=== PATIENT | male | born 1965 | race Caucasian/White ===

== ENCOUNTER → 2020-05-08 | Outpatient (CLI) | payer BC ==
--- NOTE | 2020-05-08 12:30 | CONS ---
CONSULTATION DATE OF SERVICE: 05/08/2020 A 55-year-old gentleman who has [facility] for obstructive sleep apnea-hypopnea syndrome. HISTORY OF PRESENT ILLNESS/SLEEP-WAKE EVALUATION: According to the patient, he was diagnosed with obstructive sleep apnea about 16 years ago. He was treated with CPAP but stopped treatment more than one year ago. Presently his sleep schedule from 11 p.m. to 6:15 am basically 7 days a week. He denied any problem with falling asleep, although has TV set in bedroom. He sleeps on the back and side position, preferred to sleep on the back. He has loud snoring, episodes of stopped breathing during the sleep, awakenings from sleep with restless leg, gasping for air. Sleep talking, panic attack, grinding teeth. A total amount of awakenings about 6 and about 4 episodes of nocturia at night. According to patient sometimes he started to see dreams right after falling asleep. In the morning, patient wakes up tired, falling asleep during the day, worried about his sleep, has episodes of depression. Tignall Sleepiness Scale significantly increased to 14. He takes several naps during the day for 10-20 minutes, feels refreshed after naps, does not see any dreams during the naps. PAST MEDICAL HISTORY: Positive for coronary artery disease, status post CO and several stent insertions, hypertension, bronchitis, hyperlipidemia. PAST SURGICAL HISTORY: Neck and spine surgery, hernia repair, eye surgery. MEDICATIONS: Atorvastatin, baby aspirin, fenofibrate, lisinopril, hydrochlorothiazide, metoprolol. SOCIAL HISTORY: Positive for smoking for about 15 pack years, quit in 1996. Alcohol consumption occasional. REVIEW OF SYSTEMS: Multiple awakenings from sleep. Sleepiness during the day. Snoring, nocturia. During physical exam, extremely obese 55-year-old gentleman without distress. BP 154/98, HR 88, RR 20, height 5, 11-1/2, weight 428, body mass index 57.2, temperature 97.9, oxygen saturation at room air 92%. OROPHARYNX: Low position of soft palate, wide neck 21 inches in circumference. ABDOMEN: Obese. EXTREMITIES: 1+ bilateral ankle edema. IMPRESSION: 1. Obstructive sleep apnea-hypopnea syndrome, possibly an extremely severe range, not on treatment for more than 1 year. 2. Morbid obesity, body mass index 57.2. 3. History of restless leg symptoms. 4. Coronary artery disease, status post CO and stent insertions. 5. Hypertension. 6. History of bronchitis. 7. Status post neck surgery. 8. Hyperlipidemia. 9. Status post eye surgery. PLAN: 1. Polysomnography for evaluation of patient's breathing during sleep. 2. CPAP/BiPAP titration if sleep study confirms obstructive sleep apnea-hypopnea syndrome. 3. Preferable position during sleep on the side. 4. No driving if patient feels any sleepiness. 5. I will see patient for follow up visit to explain results of testing and following plan. Thank you very much for referring this patient for consultation. Sincerely, Saurabh Lawson MD, PhD, FAASM Diplomat of [employer] [employer] [facility] [place] MMSANTOSH / FRANKLIN: [id number] /
== END | disposition home or self-care (01) ==
LOC: SLEEP 10:47
PROVIDERS: ATTEND Internal Medicine
DX: G47.33 Obstructive sleep apnea (adult) (pediatric) (principal); Z99.89 Dependence on other enabling machines and devices; E66.01 Morbid (severe) obesity due to excess calories; Z68.43 Body mass index [BMI] 50.0-59.9, adult; I10 Essential (primary) hypertension; I25.10 Atherosclerotic heart disease of native coronary artery without angina pectoris; I25.2 Old myocardial infarction; E78.5 Hyperlipidemia, unspecified; Z98.890 Other specified postprocedural states; Z87.09 Personal history of other diseases of the respiratory system
CPT/HCPCS: 99211

== ENCOUNTER → 2020-07-10 | Outpatient (CLI) | payer BC ==
[2020-07-10 09:05] VITALS: BP 165/86; PULSE 109; RESP 14; TEMP 98.2
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
== END | disposition home or self-care (01) ==
LOC: PNWHC3 08:36
PROVIDERS: ATTEND Anesthesiology
DX: M47.816 Spondylosis without myelopathy or radiculopathy, lumbar region (principal); M51.36 Other intervertebral disc degeneration, lumbar region; M48.061 Spinal stenosis, lumbar region without neurogenic claudication; M19.90 Unspecified osteoarthritis, unspecified site; G47.33 Obstructive sleep apnea (adult) (pediatric); I25.10 Atherosclerotic heart disease of native coronary artery without angina pectoris; I25.2 Old myocardial infarction; I10 Essential (primary) hypertension; E78.5 Hyperlipidemia, unspecified; E66.01 Morbid (severe) obesity due to excess calories; Z87.891 Personal history of nicotine dependence; Z79.82 Long term (current) use of aspirin; Z79.899 Other long term (current) drug therapy; Z79.1 Long term (current) use of non-steroidal anti-inflammatories (NSAID); Z79.3 Long term (current) use of hormonal contraceptives; Z79.01 Long term (current) use of anticoagulants; Z99.89 Dependence on other enabling machines and devices
CPT/HCPCS: 99211

== ENCOUNTER → 2020-07-10 | Outpatient (CLI) | payer BC ==
[2020-07-10 16:07] VITALS: BP 106/72; PULSE 96; RESP 18; TEMP 98.1; BMI 59.5
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
== END | disposition home or self-care (01) ==
LOC: BARWHC3 15:01
PROVIDERS: ATTEND Surgery Plastic and Reconstructive Surgery
DX: E66.01 Morbid (severe) obesity due to excess calories (principal); G47.33 Obstructive sleep apnea (adult) (pediatric); F32.9 Major depressive disorder, single episode, unspecified; E78.5 Hyperlipidemia, unspecified; M19.90 Unspecified osteoarthritis, unspecified site; I25.10 Atherosclerotic heart disease of native coronary artery without angina pectoris; F41.9 Anxiety disorder, unspecified; J44.9 Chronic obstructive pulmonary disease, unspecified; I25.5 Ischemic cardiomyopathy; I21.9 Acute myocardial infarction, unspecified; D72.820 Lymphocytosis (symptomatic); Z68.44 Body mass index [BMI] 60.0-69.9, adult; Z79.82 Long term (current) use of aspirin; Z79.899 Other long term (current) drug therapy; Z79.891 Long term (current) use of opiate analgesic
CPT/HCPCS: 99211

== ENCOUNTER 2020-07-25 11:33 | Day surgery (SDC) | payer BC ==
[2020-07-23 10:14] VITALS: BMI 60.0
[~2020-07-25 11:33] MED LIST: LACTATED RINGERS 1,000 ML IV SCH
[2020-07-25 12:03] VITALS: TEMP 97
[2020-07-25] MEDS ORDERED: LIDOCAINE 1% (10MG/ML) FOR IV START INTRADERMA ONE (12:03)
[2020-07-25] MEDS ORDERED: methylPREDNISolone ACETATE 40 MG/ML 1 ML VIAL ONE (12:44)
[2020-07-25] MEDS ORDERED: IOPAMIDOL M200 10 ML VIAL ONE (12:44)
[2020-07-25] MEDS ORDERED: fentaNYL (PF) 50 MCG/ML 2 ML AMP ONE (12:44)
[2020-07-25] MEDS ORDERED: MIDAZOLAM 2 MG/2 ML VIAL ONE (12:44)
--- NOTE | 2020-07-25 13:00 | P.PCN ---
Date of Procedure: 07/25/20 Procedure(s) Performed: PREOPERATIVE DIAGNOSIS: 1- Lumbar Degenerative Disc Diseases 2-Lumbar spondylosis with Facet arthropathy without myelopathy. 3-lumbar spinal stenosis. POSTOPERATIVE DIAGNOSIS: 1-Lumber Degenerative Disc Diseases 2-Lumbar spondylosis with Facet arthropathy without myelopathy. 3-lumbar spinal stenosis PROCEDURE 1. Lumbar epidural steroid injection under fluoroscopic guidance at the L4-5 level. (Fluoroscopy imaging was available in radiology department) 2. Lumbar epidurogram. ANESTHESIA: Local with 1% lidocaine 3 ml and , moderate sedation with intravenous Versed 2 mg ,and fentanyle 100 Mcg EBL: Minimal PROCEDURE INDICATION: The patient with low back pain and radiculitis symptoms unresponsive to conservative treatment. Fluoroscopy was used to optimize visualization of the needle placement and to maximize safety. PROCEDURE DESCRIPTION / TECHNIQUE: The patient was seen and identified in the preoperative area. Risks, benefits, complications including but not limited to infections ,bleeding ,allergic reaction to the medications ,nerve damage and not complete pain releife , and alternatives were discussed with the patient. The patient agreed to proceed with the procedure and signed the consent. IV was started, and vital signs were stable. Patient was taken to the OR and time out was completed. The patient was placed in the prone position on procedure table and a pillow was placed under the abdomen to reduce lumbar lordosis. The lumbosacral area was prepped and draped in the usual sterile fashion.ere closely monitored during the procedure. Conscious sedation was used during the procedure to decrease patients anxiety. Vital signs was monitered during the entire procedure. Using anterior-posterior fluoroscopy, the L4-5 interlaminar space was identified and the skin over this site was marked and then infiltrated with 1% lidocaine subcutaneously. Subsequently, a 18-gauge 6 inches Tuohy epidural needle was inserted and advanced toward the epidural space using the ``Loss of resistance technique and guided by AP and lateral fluoroscopy. The correct needle position in the epidural space was verified with the injection of 2 mL of the water soluble contrast dye Isovue 200 contrast and observing an excellent epidurogram with the epidural spread of the dye, after negative aspiration for blood and CSF and in the absence of paresthesias. Again after negative aspiration, a 6 ml mixture containing 80 mg of Depo-medrol , and 2 ml of preservative free Normal Saline, and 2 ml of preservative free lidocaine 1% solution was injected and a washout of epidurogram was seen. Needle was withdrawn intact, skin was cleansed, and bandages were applied. COMPLICATIONS: None DISPOSITION / PLANS: The patient was placed in a supine position and transferred to the recovery area in a stable condition for observation. There was no evidence of lower extremity motor or sensory deficit after the procedure. Patient was discharged from the recovery room after meeting discharge criteria. Home discharge instructions were given to the patient by the staff. The patient was reexamined prior to discharge. The patient will schedule a follow up in the clinic in 2-4 weeks.
[2020-07-25] MEDS ORDERED: IV FLUID CONTINUATION 650 ML IV ONE (13:15)
--- NOTE | 2020-07-25 13:18 | FL ---
Fluoroscopy INDICATION: Pain FINDINGS: Fluoroscopy time: 3 seconds. Images obtained: 1. IMPRESSIONS: 1. Documentation of fluoroscopy.
[2020-07-25 13:22] VITALS: BP 144/82; RESP 20
[2020-07-25 13:28] VITALS: PULSE 88
== END 2020-07-25 14:02 | disposition home or self-care (01) ==
LOC: ORPAIN 11:33
PROVIDERS: ATTEND Specialist
DX: M47.26 Other spondylosis with radiculopathy, lumbar region (principal); M51.16 Intervertebral disc disorders with radiculopathy, lumbar region; M48.061 Spinal stenosis, lumbar region without neurogenic claudication
CPT/HCPCS: 62323; J2250; J1030; J3010; Q9966

== ENCOUNTER 2020-08-13 13:18 | Day surgery (SDC) | payer BC ==
[2020-08-09 10:27] VITALS: BMI 58.7
[2020-08-13 13:33] VITALS: RESP 18; TEMP 98
[2020-08-13] MEDS ORDERED: LACTATED RINGERS 1,000 ML IV ONE (13:33)
[2020-08-13] MEDS ORDERED: LIDOCAINE 1% (10MG/ML) FOR IV START INTRADERMA ONE (13:41)
[2020-08-13] MEDS ORDERED: MIDAZOLAM 2 MG/2 ML VIAL ONE (13:45)
[2020-08-13] MEDS ORDERED: IOPAMIDOL M200 10 ML VIAL ONE (13:45)
[2020-08-13] MEDS ORDERED: methylPREDNISolone ACETATE 40 MG/ML 1 ML VIAL ONE (13:45)
[2020-08-13] MEDS ORDERED: fentaNYL (PF) 50 MCG/ML 2 ML AMP ONE (13:45)
--- NOTE | 2020-08-13 13:58 | P.PCN ---
Date of Procedure: 08/13/20 Procedure(s) Performed: PREOPERATIVE DIAGNOSIS: 1- Lumbar Degenerative Disc Diseases 2-Lumbar spondylosis with Facet arthropathy without myelopathy. 3-lumbar spinal stenosis. POSTOPERATIVE DIAGNOSIS: 1-Lumber Degenerative Disc Diseases 2-Lumbar spondylosis with Facet arthropathy without myelopathy. 3-lumbar spinal stenosis PROCEDURE 1. Lumbar epidural steroid injection under fluoroscopic guidance at the L4-5 level. (Fluoroscopy imaging was available in radiology department) 2. Lumbar epidurogram. ANESTHESIA: Local with 1% lidocaine 3 ml and , moderate sedation with intravenous Versed 2 mg ,and fentanyle 100 Mcg EBL: Minimal PROCEDURE INDICATION: The patient with low back pain and radiculitis symptoms unresponsive to conservative treatment. Fluoroscopy was used to optimize visualization of the needle placement and to maximize safety. PROCEDURE DESCRIPTION / TECHNIQUE: The patient was seen and identified in the preoperative area. Risks, benefits, complications including but not limited to infections ,bleeding ,allergic reaction to the medications ,nerve damage and not complete pain releife , and alternatives were discussed with the patient. The patient agreed to proceed with the procedure and signed the consent. IV was started, and vital signs were stable. Patient was taken to the OR and time out was completed. The patient was placed in the prone position on procedure table and a pillow was placed under the abdomen to reduce lumbar lordosis. The lumbosacral area was prepped and draped in the usual sterile fashion.ere closely monitored during the procedure. Conscious sedation was used during the procedure to decrease patients anxiety. Vital signs was monitered during the entire procedure. Using anterior-posterior fluoroscopy, the L4-5 interlaminar space was identified and the skin over this site was marked and then infiltrated with 1% lidocaine subcutaneously. Subsequently, a 18-gauge 6 inches Tuohy epidural needle was inserted and advanced toward the epidural space using the ``Loss of resistance technique and guided by AP and lateral fluoroscopy. The correct needle position in the epidural space was verified with the injection of 2 mL of the water soluble contrast dye Isovue 200 contrast and observing an excellent epidurogram with the epidural spread of the dye, after negative aspiration for blood and CSF and in the absence of paresthesias. Again after negative aspiration, a 6 ml mixture containing 80 mg of Depo-medrol , and 2 ml of preservative free Normal Saline, and 2 ml of preservative free lidocaine 1% solution was injected and a washout of epidurogram was seen. Needle was withdrawn intact, skin was cleansed, and bandages were applied. COMPLICATIONS: None DISPOSITION / PLANS: The patient was placed in a supine position and transferred to the recovery area in a stable condition for observation. There was no evidence of lower extremity motor or sensory deficit after the procedure. Patient was discharged from the recovery room after meeting discharge criteria. Home discharge instructions were given to the patient by the staff. The patient was reexamined prior to discharge. The patient will schedule a follow up in the clinic in 2-4 weeks.
--- NOTE | 2020-08-13 14:26 | FL ---
EXAMINATION TYPE: FL guided pain mgmt statistic DATE OF EXAM: 08/13/2020 CLINICAL HISTORY: Low back pain. TECHNIQUE: Fluoroscopy. COMPARISON: None. FINDINGS: Fluoroscopic guidance was provided during pain relief procedure performed by Dr. Cordero . A total of 2 seconds of fluoroscopic time was utilized during the procedure and 1 spot images are acquired. Single image acquired shows needle localization at L4-L5 disc space level. IMPRESSION: As Above.
[2020-08-13 14:27] VITALS: BP 122/77; PULSE 83
[2020-08-13] MEDS ORDERED: IV FLUID CONTINUATION 1,000 ML IV ONE (14:48)
== END 2020-08-13 14:49 | disposition home or self-care (01) ==
LOC: ORPAIN 13:18
PROVIDERS: ATTEND Specialist
DX: M47.26 Other spondylosis with radiculopathy, lumbar region (principal); M51.16 Intervertebral disc disorders with radiculopathy, lumbar region; M48.061 Spinal stenosis, lumbar region without neurogenic claudication; I10 Essential (primary) hypertension; I25.10 Atherosclerotic heart disease of native coronary artery without angina pectoris; Z79.82 Long term (current) use of aspirin
CPT/HCPCS: 62323; J2250; J1030; J3010; Q9966

== ENCOUNTER 2020-08-22 07:14 | Day surgery (SDC) | payer BC ==
[2020-08-20 14:07] VITALS: BMI 57.9
--- NOTE | 2020-08-22 07:07 | P.GSHP ---
History of Present Illness H&P Date: 08/22/20 CHIEF COMPLAINT: GERD HISTORY OF PRESENT ILLNESS: The patient is a 55-year-old male who presents reports gastroesophageal reflux disease. Upper endoscopy was offered for further evaluation and management. PAST MEDICAL HISTORY: Please see list. PAST SURGICAL HISTORY: Please see list. MEDICATIONS: Please see list. ALLERGIES: Please see list. SOCIAL HISTORY: No illicit drug use FAMILY HISTORY: No reports of Crohn disease or ulcerative colitis. REVIEW OF ORGAN SYSTEMS: CONSTITUTIONAL: No reports of fevers or chills. GI: Denies any blood in stools or constipation. PHYSICAL EXAM: VITAL SIGNS: Stable GENERAL: Well-developed and pleasant in no acute distress. HEENT: No scleral icterus. Extraocular movements grossly intact. Moist buccal mucosa. NECK: Supple without lymphadenopathy. CHEST: Unlabored respirations. Equal bilateral excursions. CARDIOVASCULAR: Regular rate and rhythm. Distal 2+ pulses. ABDOMEN: Soft, nondistended. MUSCULOSKELETAL: No clubbing, cyanosis, or edema. ASSESSMENT: 1. Gastroesophageal reflux disease PLAN: 1. Recommend proceeding with an upper endoscopy Past Medical History Past Medical History: Coronary Artery Disease (CAD), Hyperlipidemia, Hypertension, Myocardial Infarction (HI), Musculoskeletal Disorder, Osteoarthritis (OA), Sleep Apnea/CPAP/BIPAP, Syncope Additional Past Medical History / Comment(s): , DIZZINESS, HX OF CLOT IN HIS ARM AFTER HOCKEY INJURY, SOB- STATES "WINDED AFTER WALKING 10-15 FEET-HAS APPT WITH DR Erik SIERRA-PULMONARY., SWELLING IN ANKLES AND LEGS, SAW DR BARRAGAN FOR LOW LYMPHOCYTES., LOWER BACK PAIN THAT RADIATES TO BUTTOCKS, LEGS AND FEET,HAS BI- PAP NOW-SLEEPING BETTER Last Myocardial Infarction Date:: 2014 History of Any Multi-Drug Resistant Organisms: None Reported Past Surgical History: Back Surgery, Heart Catheterization With Stent, Hernia Repair, Orthopedic Surgery Additional Past Surgical History / Comment(s): "REVERSE HERNIA", HEART CATH WITH 2 STENTS (2015 @ [facility]", NECK & SPINE SURGERY WITH PLATES & SCREWS AND CADAVER BONE (DR NOLASCO), HAND SURGERY X3 (CRUSHING INJURY). eye surgery d/t infection. PAIN CLINIC PROCEDURES Past Anesthesia/Blood Transfusion Reactions: No Reported Reaction Additional Past Anesthesia/Blood Transfusion Reaction / Comment(s): HX BLOOD TRANSFUSION (INFANT) Date of Last Stent Placement:: 2014 Smoking Status: Former smoker - Past Family History Mother Family Medical History: Myocardial Infarction (HI) Father Family Medical History: Myocardial Infarction (HI) Sister(s) Family Medical History: Thyroid Disorder Medications and Allergies Home Medications Medication Instructions Recorded Confirmed Type Aspirin [Adult Low Dose Aspirin EC] 81 mg PO HS 06/10/20 08/20/20 History Atorvastatin [Lipitor] 80 mg PO HS 06/10/20 08/20/20 History Fenofibrate,Micronized 134 mg PO DAILY 06/10/20 08/20/20 History [Fenofibrate] Lisinopril-Hctz 10-12.5 mg 1 tab PO DAILY 06/10/20 08/20/20 History [Zestoretic 10-12.5] Metoprolol Succinate [Toprol XL] 50 mg PO DAILY 06/10/20 08/20/20 History Nitroglycerin Sl Tabs [Nitrostat] 0.4 mg SUBLINGUAL Q5M PRN 06/10/20 08/20/20 History Ibuprofen 600 mg PO Q8H 07/25/20 08/20/20 History Allergies Allergy/AdvReac Type Severity Reaction Status Date / Time No Known Allergies Allergy Verified 08/20/20 14:01
[2020-08-22 07:30] VITALS: RESP 16; TEMP 97
[2020-08-22] MEDS ORDERED: LIDOCAINE 1% (10MG/ML) FOR IV START INTRADERMA ONE (07:30)
[2020-08-22] MEDS ORDERED: PROPOFOL 10 MG/ML 20 ML VIAL IV ONE (08:12)
--- NOTE | 2020-08-22 08:32 | P.PCN ---
Date of Procedure: 08/22/20 Description of Procedure: PREOPERATIVE DIAGNOSIS: Gastroesophageal reflux disease. Morbid obesity. POSTOPERATIVE DIAGNOSIS: Morbid obesity. Gastritis. Gastroesophageal reflux disease with erosive esophagitis OPERATION: Esophagogastroduodenoscopy with biopsies along antrum. SURGEON: Sudha Gayle MD ANESTHESIA: MAC. INDICATIONS: The patient is a 55-year-old male who presents with a history of reflux disease. Benefits and risks of the procedure were described. Informed consent was obtained. DESCRIPTION: The patient was brought into the endoscopy suite and laid in the left lateral decubitus position. An Olympus gastroscope was passed along the posterior oropharynx down to the distal esophagus where the squamocolumnar junction was encountered at 43 cm from the incisors. The stomach was entered and no bile reflux was found. Additional findings are listed below. Biopsies with cold forceps were obtained of the antrum. The first through third portion of the duodenum was examined and unremarkable. Retroflexion of the scope confirmed Hill grade 2 lower esophageal valve. The squamocolumnar junction demonstrated LA grade C erosive esophagitis. The stomach was desufflated. The patient tolerated the procedure well. FINDINGS: Squamocolumnar junction 43 cm from the incisors. Diaphragmatic hiatus at 43 cm. Hill grade 2 lower esophageal valve. LA grade C erosive esophagitis. No active duodenitis. Chronic gastritis RECOMMENDATIONS: Upper endoscopy as needed. Recommend start of Omeprazole 40 mg daily Plan - Discharge Summary Discharge Rx Participant: No New Discharge Prescriptions: Continue Aspirin [Adult Low Dose Aspirin EC] 81 mg PO HS Atorvastatin [Lipitor] 80 mg PO HS Fenofibrate,Micronized [Fenofibrate] 134 mg PO DAILY Lisinopril-Hctz 10-12.5 mg [Zestoretic 10-12.5] 1 tab PO DAILY Metoprolol Succinate [Toprol XL] 50 mg PO DAILY Nitroglycerin Sl Tabs [Nitrostat] 0.4 mg SUBLINGUAL Q5M PRN PRN Reason: Chest Pain Ibuprofen 600 mg PO Q8H Discharge Medication List Aspirin [Adult Low Dose Aspirin EC] 81 mg PO HS 06/10/20 [History] Atorvastatin [Lipitor] 80 mg PO HS 06/10/20 [History] Fenofibrate,Micronized [Fenofibrate] 134 mg PO DAILY 06/10/20 [History] Lisinopril-Hctz 10-12.5 mg [Zestoretic 10-12.5] 1 tab PO DAILY 06/10/20 [History] Metoprolol Succinate [Toprol XL] 50 mg PO DAILY 06/10/20 [History] Nitroglycerin Sl Tabs [Nitrostat] 0.4 mg SUBLINGUAL Q5M PRN 06/10/20 [History] Ibuprofen 600 mg PO Q8H 07/25/20 [History] Follow up Appointment(s)/Referral(s): Sudha Gayle MD [STAFF PHYSICIAN] - 09/04/20 Patient Instructions/Handouts: Gastritis (DC) Discharge Disposition: HOME SELF-CARE
[2020-08-22 08:43] VITALS: BP 100/64; PULSE 89
== END 2020-08-22 09:14 | disposition home or self-care (01) ==
LOC: ORWHC2ENDO 07:14
PROVIDERS: ATTEND Surgery Plastic and Reconstructive Surgery
DX: K29.50 Unspecified chronic gastritis without bleeding (principal); K22.10 Ulcer of esophagus without bleeding; K21.9 Gastro-esophageal reflux disease without esophagitis; E66.01 Morbid (severe) obesity due to excess calories; Z68.43 Body mass index [BMI] 50.0-59.9, adult; I25.10 Atherosclerotic heart disease of native coronary artery without angina pectoris; I10 Essential (primary) hypertension; E78.5 Hyperlipidemia, unspecified; I25.2 Old myocardial infarction; M19.90 Unspecified osteoarthritis, unspecified site; G47.33 Obstructive sleep apnea (adult) (pediatric); Z99.89 Dependence on other enabling machines and devices; Z86.718 Personal history of other venous thrombosis and embolism; R06.02 Shortness of breath; M54.5 Low back pain; Z95.5 Presence of coronary angioplasty implant and graft; Z98.1 Arthrodesis status; Z98.890 Other specified postprocedural states; Z87.891 Personal history of nicotine dependence; Z83.49 Family history of other endocrine, nutritional and metabolic diseases; Z79.1 Long term (current) use of non-steroidal anti-inflammatories (NSAID); Z79.82 Long term (current) use of aspirin; Z79.899 Other long term (current) drug therapy
CPT/HCPCS: 88305; 43239; J2704

== ENCOUNTER → 2020-08-26 | Outpatient (CLI) | payer BC ==
[2020-08-26 13:18] VITALS: BMI 56.5
== END | disposition home or self-care (01) ==
LOC: BARWHC3 08:56
PROVIDERS: ATTEND Surgery Plastic and Reconstructive Surgery
DX: E66.01 Morbid (severe) obesity due to excess calories (principal); Z71.3 Dietary counseling and surveillance; Z68.43 Body mass index [BMI] 50.0-59.9, adult
CPT/HCPCS: 97804

== ENCOUNTER → 2020-09-02 | Outpatient (CLI) | payer BC ==
[2020-09-02 14:15] VITALS: BP 116/81; PULSE 101; RESP 16
--- NOTE | 2020-09-02 14:50 | P.PN ---
Subjective Progress Note Date: 09/02/20 This is a follow-up visit for this 55 years old male with a chronic history of severe low back pain is diagnosed with lumbar spondylosis with lumbar facet arthropathy, lumbar degenerative disc disease, status post lumbar epidural steroid injections 2 showed reported that his pain improved significantly after the injection , he denies any motor or sensory deficit he is able to ambulate on his own, he denies any fever or night sweats, Objective - Vital Signs Vital signs: Vital Signs Temp Pulse 101 H 09/02/20 14:10 Resp 16 09/02/20 14:10 BP 116/81 09/02/20 14:10 Pulse Ox 95 09/02/20 14:10 - Exam Physical Examinations : -Constitutiona : Cooperative , not in acute distress . -HEENT : nech : supple , no Lymphadenopathy , normal thyroid size . : eyes : no ptosis , no icterus, no photophobia . - neurologic : Cranial nerve II to XII intact , no focal neurological deffecit . -psychatric : alert , oriented X 3 , appropriate affect , intact judgment and insight . -Lymphatic : no Lymphadenopathy . - musculoskeltal : Lumber spine moter stegnth lower extremities ,thigh and legs 5/5 Right side , 5/5 Left side Assessment and Plan Plan: Assessment and plan=1-lumbar degenerative disc disease. 2-lumbar spondylosis with lumbar facet arthropathy without myelopathy. pain improved significantly after lumbar epidural steroid injection. he will follow up in the pain clinic when necessary - PQRS measures = - Patient's medications are documented in the chart. -Tobacco use is negative and counseling.Given. -Patient's has not received pneumococcal vaccine. -Advanced care planning discussed, patient not eligible. -Opiate contract signed. -Pain positive and follow-up visit/procedure is scheduled. -Patient's blood pressure measured [ 116/82 ] , and documented in the record ,and patient will follow up with the primary care. -Patient's weight was measured and body mass index [ 57] above the normal limits and counseling was done. and patient instructed to follow-up with the primary care physician. -Patient was not identified as an unhealthy alcohol user Time with Patient: Less than 30
== END | disposition home or self-care (01) ==
LOC: PNWHC3 13:57
PROVIDERS: ATTEND Specialist
DX: M51.36 Other intervertebral disc degeneration, lumbar region (principal); M47.816 Spondylosis without myelopathy or radiculopathy, lumbar region
CPT/HCPCS: 99211

== ENCOUNTER → 2020-09-04 | Outpatient (CLI) | payer BC ==
[2020-09-04 15:25] VITALS: BP 135/94; PULSE 95; RESP 16; TEMP 98.4; BMI 56.6
--- NOTE | 2020-09-04 15:49 | P.PN ---
Subjective Progress Note Date: 09/04/20 DATE OF SERVICE: 09/04/2020 CHIEF COMPLAINT: Morbid obesity HISTORY OF PRESENT ILLNESS: Farhad Lewis is a 55-year-old male who comes in with lifelong morbid obesity. He has completed medically supervised weight loss. As a result of this morbid obesity, he has ischemic cardiomyopathy, myocardial infarction, obstructive sleep apnea, chronic obstructive pulmonary disease, hypertensive heart disease. He has completed upper endoscopy. He follows up following his upper endoscopy. He had moderate esophagitis. He is on BiPAP. He denies burning sensations with medications. At height of 5 feet 11.5 inches, his ideal body weight is 178 pounds. He comes in 411 pounds from 432 pounds, 2 months ago. His body mass index was 60.1, now 56.7. He is 233 pounds overweight. PAST MEDICAL HISTORY: 1. Morbid obesity due to excess calories 2. Body mass index of 60.1, initial 3. Obstructive sleep apnea 4. Chronic obstructive pulmonary disease 5. Ischemic cardiomyopathy 6. Myocardial infarction 7. Osteoarthritis lower back 8. Hyperlipidemia 9. Coronary artery disease 10. Lymphocytosis 11. Generalized anxiety disorder 12. Depressive disorder PAST SURGICAL HISTORY: 1. History of back surgery 2. Heart catheterization with stent 3. Ventral hernia repair HOME MEDICATIONS: Home Medications Medication Instructions Recorded Confirmed Aspirin [Adult Low Dose Aspirin EC] 81 mg PO HS 06/10/20 09/05/20 Atorvastatin [Lipitor] 80 mg PO HS 06/10/20 09/05/20 Fenofibrate,Micronized 134 mg PO DAILY 06/10/20 09/05/20 [Fenofibrate] Lisinopril-Hctz 10-12.5 mg 1 tab PO DAILY 06/10/20 09/05/20 [Zestoretic 10-12.5] Metoprolol Succinate [Toprol XL] 50 mg PO DAILY 06/10/20 09/05/20 Nitroglycerin Sl Tabs [Nitrostat] 0.4 mg SUBLINGUAL Q5M PRN 06/10/20 09/05/20 Ibuprofen 600 mg PO Q8H PRN 07/25/20 09/05/20 Previous Rx's Medication Instructions Recorded Omeprazole [PriLOSEC] 40 mg PO DAILY #14 cap 08/22/20 Omeprazole [PriLOSEC] 40 mg PO DAILY #90 cap 09/04/20 ALLERGIES: Denies SOCIAL HISTORY: Past tobacco use. FAMILY HISTORY: No family history of ulcerative colitis disease or Crohn's disease. Family history of morbid obesity. No lupus in the family. No reports of stomach or esophageal cancer. REVIEW OF ORGAN SYSTEMS: CONSTITUTIONAL: At height of 5 feet 11.5 inches, his ideal body weight is 178 pounds. He comes in 432 pounds from 436 pounds, his highest. His body mass index was 60.1. He is 254 pounds overweight. HEENT: Denies any active troubles with vision or hearing. ENDOCRINE: No diabetes. No hypothyroidism. CARDIOVASCULAR: Past reports of palpitations or heart attacks or chest pain. RESPIRATORY: Has daytime somnolence. Has a history of sleep apnea GASTROINTESTINAL: Denies any bright red blood per rectum. No diarrhea. No constipation. MUSCULOSKELETAL: Has lower back pain and joint pain. Has osteoarthritis of the back. History of bilateral lower extremity edema. NEURO: No headaches. No seizure disorders. PSYCH: Has depression. No suicidal ideation. Has anxiety. RHEUMATOLOGIC: No lupus. No rheumatoid arthritis. HEMATOLOGIC: Denies any abnormal bleeding or bruising. Personal history of DVTs. History of leukocytosis. SKIN: No rash. No skin cancer. PHYSICAL EXAM: VITAL SIGNS: Height 5 foot 11.5 inches, weight 411 pounds. BMI 56.7 Vital Signs Temp 98.4 F 09/04/20 15:23 Pulse 95 09/04/20 15:23 Resp 16 09/04/20 15:23 BP 135/94 09/04/20 15:23 Pulse Ox GENERAL: Well-developed in no acute distress. HEENT: No scleral icterus. Extraocular movements grossly intact. Hears conversational speech. No nasal drainage. NECK: Supple without lymphadenopathy. CHEST: Nonlabored respirations with equal bilateral excursions. CARDIOVASCULAR: Regular rate and regular rhythm. Distal 2+ pulses. ABDOMEN: Obese, soft, nontender, nondistended. MUSCULOSKELETAL: No clubbing, cyanosis. Gross strength 5/5 distal lower extremities. NEURO: No focal or lateralizing signs. Cranial nerves 2 through 12 grossly within normal limits. PSYCH: Appropriate affect. Alert and oriented to person, place and time. SKIN: Good skin turgor. Well perfused. LABS: Reviewed. Hemoglobin A1c elevated at 6.7%. Triglycerides elevated at 195. Vitamin D low 10.9. PTH elevated. Copper elevated. Zinc low EKG: Outside facility stress test performed EGD FINDINGS: Squamocolumnar junction 43 cm from the incisors. Diaphragmatic hiatus at 43 cm. Hill grade 2 lower esophageal valve. LA grade C erosive esophagitis. No active duodenitis. Chronic gastritis Final Pathologic Diagnosis GASTRIC ANTRUM, BIOPSY: Mild chronic gastritis. Helicobacter pylori organisms are not identified on routine H+E sections. ASSESSMENT: 1. Morbid obesity due to excess calories 2. Body mass index of 60.1, initial 3. Obstructive sleep apnea 4. Chronic soft pulmonary disease 5. Ischemic cardiomyopathy 6. Myocardial infarction 7. Osteoarthritis lower back 8. Hyperlipidemia 9. Coronary artery disease 10. Lymphocytosis 11. Generalized anxiety disorder 12. Depressive disorder 13. Diabetes 2, [id number], new 14. Vitamin D deficiency 15. Secondary hyperparathyroidism 16. Copper excess 17. Zinc deficiency PLAN: 1. Bariatric options between a sleeve, band and a Heron-en-Y gastric bypass were reviewed in detail. The patient elected for a sleeve gastrectomy. Robotic a ssisted approach described. 2. The [place] [facility] Data was also reviewed with benefits and risks as described. 3. An 8 page second-generation bariatric consent form was reviewed in detail including potential of bleeding, infection, leaks, adequate weight loss, nutritional deficiencies which the patient demonstrated understanding of the risks. 4. A 2 week high-protein low caloric 800 kcal diet described to address hepatomegaly. 5. Preoperative labs including complete metabolic panel and CBC with type and screen recommended. 6. DVT prophylaxis per [place] [facility]. 7. Antibiotic prophylaxis. 8. Inpatient hospitalization anticipated for more than 2 nights. 9. All questions and concerns were addressed with the patient. 10. He is at elevated risk for perioperative complications due to pre-existing myocardial infarction as well as severe obstructive sleep apnea. 11. Overall, patient has expressed understanding of bariatric care including p ostoperative diet and commitment of lifestyle. Patient should benefit from surgical intervention for correction of her morbid obesity. Objective - Vital Signs Vital signs: Vital Signs Temp 98.4 F 09/04/20 15:23 Pulse 95 09/04/20 15:23 Resp 16 09/04/20 15:23 BP 135/94 09/04/20 15:23 Pulse Ox Intake & Output 09/03/20 09/04/20 09/04/20 18:59 06:59 18:59 Weight 186.88 kg - Labs CBC & Chem 7: 09/04/20 16:26 09/04/20 16:26
[2020-09-04 16:50] LABS: HCT 47.9 % (39.0-53.0); HGB 15.9 gm/dL (13.0-17.5); MCH 28.4 pg (25.0-35.0); MCHC 33.1 g/dL (31.0-37.0); MCV 85.8 fL (80.0-100.0); Mean Platelet Volume 7.3; Platelet Count 239 k/uL (150-450); RBC 5.58 m/uL (4.30-5.90); RDW 15.4 % (11.5-15.5); WBC 8.2 k/uL (3.8-10.6)
[2020-09-05 00:30] LABS: % Iron Saturation 24.17 (15.00-50.00); African American GFR (CKD) 77.9 (60.0-200.0); Albumin 4.4 g/dL (3.80-4.90); Albumin/Globulin Ratio 1.57 (1.60-3.17); Anion Gap 9.6 mmol/L (4.00-12.00); BUN/Creat Ratio 15.83 Ratio (12.00-20.00); Calcium 9.6 mg/dL (8.7-10.3); Carbon Dioxide 25.4 mmol/L (21.6-31.8); Chol/HDL Ratio 4.78; Globulin 2.8 g/dL (1.6-3.3); Non-African American GFR(CKD) 67.2 (60.0-200.0); Phosphorus 3.4 mg/dL (2.4-5.1); Potassium 4.4 mmol/L (3.5-5.5); Total Bilirubin 0.6 mg/dL (0.3-1.2); Total Protein 7.2 g/dL (6.2-8.2)
[2020-09-05 00:40] LABS: Ferritin 249.9 ng/mL (22.0-322.0)
[2020-09-05 00:41] LABS: Folate, Serum 8.2 ng/mL
[2020-09-05 03:19] LABS: Hemoglobin A1C 6.7 % (4.0-6.0)
[2020-09-05 04:00] LABS: INR 1.07 (0.90-1.11); Partial Thromboplastin Time 29.6 sec (23.5-31.0); Prothrombin Time 11.5 sec (9.9-11.9)
[2020-09-05 15:08] LABS: Zinc, Serum 57 ug/dL (60-130)
[2020-09-06 06:24] LABS: Vitamin A 53 ug/dL (38-106)
[2020-09-08 03:16] LABS: Selenium 130 mcg/L (63-160)
[2020-09-09 06:31] LABS: Vit B1(Thiamine) 80 ug/L (38-122)
== END | disposition home or self-care (01) ==
LOC: BARWHC3 14:50
PROVIDERS: ATTEND Surgery Plastic and Reconstructive Surgery
DX: E66.01 Morbid (severe) obesity due to excess calories (principal); G47.33 Obstructive sleep apnea (adult) (pediatric); J98.4 Other disorders of lung; I25.5 Ischemic cardiomyopathy; I21.9 Acute myocardial infarction, unspecified; M19.90 Unspecified osteoarthritis, unspecified site; E78.5 Hyperlipidemia, unspecified; I25.10 Atherosclerotic heart disease of native coronary artery without angina pectoris; F41.9 Anxiety disorder, unspecified; F32.9 Major depressive disorder, single episode, unspecified; E11.9 Type 2 diabetes mellitus without complications; E55.9 Vitamin D deficiency, unspecified; D72.820 Lymphocytosis (symptomatic); N25.81 Secondary hyperparathyroidism of renal origin; R79.0 Abnormal level of blood mineral; E60 Dietary zinc deficiency; Z79.82 Long term (current) use of aspirin; Z79.899 Other long term (current) drug therapy; Z79.891 Long term (current) use of opiate analgesic; Z68.44 Body mass index [BMI] 60.0-69.9, adult
CPT/HCPCS: 36415; 80053; 80061; 82306; 82525; 82607; 82728; 82746; 83036; 83540; 83550; 83735; 83970; 84100; 84134; 84255; 84425; 84443; 84590; 84630; 85027; 85610; 85730; 99211

== ENCOUNTER → 2020-09-27 | Outpatient (CLI) | payer BC | END | disposition home or self-care (01) | LOC: LABPAT 11:26 | PROVIDERS: ATTEND Surgery Plastic and Reconstructive Surgery | DX: Z01.818 Encounter for other preprocedural examination (principal) | CPT/HCPCS: 86850; 86900; 86901 ==

== ENCOUNTER 2020-09-30 08:55 | Inpatient (IN) | payer BC ==
--- NOTE | 2020-09-30 01:29 | P.GSHP ---
History of Present Illness H&P Date: 09/30/20 CHIEF COMPLAINT: Morbid obesity HISTORY OF PRESENT ILLNESS: Farhad Lewis is a 55-year-old male who comes in with lifelong morbid obesity. He has completed medically supervised weight loss. As a result of this morbid obesity, he has ischemic cardiomyopathy, myocardial infarction, obstructive sleep apnea, chronic obstructive pulmonary disease, hypertensive heart disease. He has completed upper endoscopy. He follows up following his upper endoscopy. He had moderate esophagitis. He is on BiPAP. He denies burning sensations with medications. At height of 5 feet 11.5 inches, his ideal body weight is 178 pounds. He comes in 411 pounds from 432 pounds, 2 months ago. His body mass index was 60.1, now 56.7. He is 233 pounds overweight. PAST MEDICAL HISTORY: 1. Morbid obesity due to excess calories 2. Body mass index of 60.1, initial 3. Obstructive sleep apnea 4. Chronic obstructive pulmonary disease 5. Ischemic cardiomyopathy 6. Myocardial infarction 7. Osteoarthritis lower back 8. Hyperlipidemia 9. Coronary artery disease 10. Lymphocytosis 11. Generalized anxiety disorder 12. Depressive disorder PAST SURGICAL HISTORY: 1. History of back surgery 2. Heart catheterization with stent 3. Ventral hernia repair HOME MEDICATIONS: Home Medications Medication Instructions Recorded Confirmed Aspirin [Adult Low Dose Aspirin EC] 81 mg PO HS 06/10/20 09/05/20 Atorvastatin [Lipitor] 80 mg PO HS 06/10/20 09/05/20 Fenofibrate,Micronized 134 mg PO DAILY 06/10/20 09/05/20 [Fenofibrate] Lisinopril-Hctz 10-12.5 mg 1 tab PO DAILY 06/10/20 09/05/20 [Zestoretic 10-12.5] Metoprolol Succinate [Toprol XL] 50 mg PO DAILY 06/10/20 09/05/20 Nitroglycerin Sl Tabs [Nitrostat] 0.4 mg SUBLINGUAL Q5M PRN 06/10/20 09/05/20 Ibuprofen 600 mg PO Q8H PRN 07/25/20 09/05/20 Previous Rx's Medication Instructions Recorded Omeprazole [PriLOSEC] 40 mg PO DAILY #14 cap 08/22/20 Omeprazole [PriLOSEC] 40 mg PO DAILY #90 cap 09/04/20 ALLERGIES: Denies SOCIAL HISTORY: Past tobacco use. FAMILY HISTORY: No family history of ulcerative colitis disease or Crohn's disease. Family history of morbid obesity. No lupus in the family. No reports of stomach or esophageal cancer. REVIEW OF ORGAN SYSTEMS: CONSTITUTIONAL: At height of 5 feet 11.5 inches, his ideal body weight is 178 pounds. He comes in 432 pounds from 436 pounds, his highest. His body mass index was 60.1. He is 254 pounds overweight. HEENT: Denies any active troubles with vision or hearing. ENDOCRINE: No diabetes. No hypothyroidism. CARDIOVASCULAR: Past reports of palpitations or heart attacks or chest pain. RESPIRATORY: Has daytime somnolence. Has a history of sleep apnea GASTROINTESTINAL: Denies any bright red blood per rectum. No diarrhea. No constipation. MUSCULOSKELETAL: Has lower back pain and joint pain. Has osteoarthritis of the back. History of bilateral lower extremity edema. NEURO: No headaches. No seizure disorders. PSYCH: Has depression. No suicidal ideation. Has anxiety. RHEUMATOLOGIC: No lupus. No rheumatoid arthritis. HEMATOLOGIC: Denies any abnormal bleeding or bruising. Personal history of DVTs. History of leukocytosis. SKIN: No rash. No skin cancer. PHYSICAL EXAM: VITAL SIGNS: Height 5 foot 11.5 inches, weight 411 pounds. BMI 56.7 GENERAL: Well-developed in no acute distress. HEENT: No scleral icterus. Extraocular movements grossly intact. Hears conversational speech. No nasal drainage. NECK: Supple without lymphadenopathy. CHEST: Nonlabored respirations with equal bilateral excursions. CARDIOVASCULAR: Regular rate and regular rhythm. Distal 2+ pulses. ABDOMEN: Obese, soft, nontender, nondistended. MUSCULOSKELETAL: No clubbing, cyanosis. Gross strength 5/5 distal lower extremities. NEURO: No focal or lateralizing signs. Cranial nerves 2 through 12 grossly within normal limits. PSYCH: Appropriate affect. Alert and oriented to person, place and time. SKIN: Good skin turgor. Well perfused. LABS: Reviewed. Hemoglobin A1c elevated at 6.7%. Triglycerides elevated at 195. Vitamin D low 10.9. PTH elevated. Copper elevated. Zinc low EKG: Outside facility stress test performed EGD FINDINGS: Squamocolumnar junction 43 cm from the incisors. Diaphragmatic hiatus at 43 cm. Hill grade 2 lower esophageal valve. LA grade C erosive esophagitis. No active duodenitis. Chronic gastritis Final Pathologic Diagnosis GASTRIC ANTRUM, BIOPSY: Mild chronic gastritis. Helicobacter pylori organisms are not identified on routine H+E sections. ASSESSMENT: 1. Morbid obesity due to excess calories 2. Body mass index of 60.1, initial 3. Obstructive sleep apnea 4. Chronic soft pulmonary disease 5. Ischemic cardiomyopathy 6. Myocardial infarction 7. Osteoarthritis lower back 8. Hyperlipidemia 9. Coronary artery disease 10. Lymphocytosis 11. Generalized anxiety disorder 12. Depressive disorder 13. Diabetes 2, [id number], new 14. Vitamin D deficiency 15. Secondary hyperparathyroidism 16. Copper excess 17. Zinc deficiency PLAN: 1. Bariatric options between a sleeve, band and a Heron-en-Y gastric bypass were reviewed in detail. The patient elected for a sleeve gastrectomy. Robotic assisted approach described. 2. The [place] [facility] Data was also reviewed with benefits and risks as described. 3. An 8 page second-generation bariatric consent form was reviewed in detail including potential of bleeding, infection, leaks, adequate weight loss, nutritional deficiencies which the patient demonstrated understanding of the risks. 4. A 2 week high-protein low caloric 800 kcal diet described to address hepatomegaly. 5. Preoperative labs including complete metabolic panel and CBC with type and screen recommended. 6. DVT prophylaxis per [place] [facility]. 7. Antibiotic prophylaxis. 8. Inpatient hospitalization anticipated for more than 2 nights. 9. All questions and concerns were addressed with the patient. 10. He is at elevated risk for perioperative complications due to pre-existing myocardial infarction as well as severe obstructive sleep apnea. 11. Overall, patient has expressed understanding of bariatric care including postoperative diet and commitment of lifestyle. Patient should benefit from surgical intervention for correction of her morbid obesity. Past Medical History Past Medical History: Coronary Artery Disease (CAD), GERD/Reflux, Hyperlipid emia, Hypertension, Myocardial Infarction (DC), Musculoskeletal Disorder, Osteoarthritis (OA), Sleep Apnea/CPAP/BIPAP, Syncope Additional Past Medical History / Comment(s): Hx of clot in arm after hockey injury. Saw DR Erik Chu-Pulmonary nl. SWELLING IN ANKLES AND LEGS, SAW DR BARRAGAN FOR LOW LYMPHOCYTES., Lower Back pain radiates to buttocks, legs, feet. BI-PAP now, sleeping better. Last Myocardial Infarction Date:: 2014 History of Any Multi-Drug Resistant Organisms: None Reported Past Surgical History: Back Surgery, Heart Catheterization With Stent, Hernia Repair, Orthopedic Surgery Additional Past Surgical History / Comment(s): "REVERSE HERNIA", HEART CATH w/ 2 Stents (2015 @ [facility]", NECK & SPINE SURGERY WITH PLATES & SCREWS AND CADAVER BONE (DR NOLASCO), HAND SURGERY X3 (CRUSHING INJURY). eye surgery d/t infection. PAIN CLINIC PROCEDURES Past Anesthesia/Blood Transfusion Reactions: No Reported Reaction Additional Past Anesthesia/Blood Transfusion Reaction / Comment(s): HX BLOOD TRANSFUSION (INFANT) Date of Last Stent Placement:: 2014 Smoking Status: Former smoker - Past Family History Mother Family Medical History: Myocardial Infarction (DC) Father Family Medical History: Myocardial Infarction (DC) Sister(s) Family Medical History: Thyroid Disorder Medications and Allergies Home Medications Medication Instructions Recorded Confirmed Type Aspirin [Adult Low Dose Aspirin EC] 81 mg PO HS 06/10/20 09/26/20 History Atorvastatin [Lipitor] 80 mg PO HS 06/10/20 09/26/20 History Fenofibrate,Micronized 134 mg PO DAILY 06/10/20 09/26/20 History [Fenofibrate] Lisinopril-Hctz 10-12.5 mg 1 tab PO DAILY 06/10/20 09/26/20 History [Zestoretic 10-12.5] Metoprolol Succinate [Toprol XL] 50 mg PO DAILY 06/10/20 09/26/20 History Nitroglycerin Sl Tabs [Nitrostat] 0.4 mg SUBLINGUAL Q5M PRN 06/10/20 09/26/20 History Omeprazole [PriLOSEC] 40 mg PO DAILY #14 cap 08/22/20 09/26/20 Rx Allergies Allergy/AdvReac Type Severity Reaction Status Date / Time No Known Allergies Allergy Verified 09/26/20 12:01
[~2020-09-30 08:55] MED LIST changes: +ACETAMINOPHEN TAB 500 MG TAB PO STA; +CHLORHEXIDINE GLUCONATE 15 ML CUP MUCOUS MEM PRN; +DEXAMETHASONE SOD PHOSPHATE 4 MG/ML 1 ML VIAL IV ONE; +ENOXAPARIN 40 MG/0.4 ML SYRINGE SQ PRN; +GABAPENTIN 300 MG CAP PO STA; +HYDROmorphone 0.5 MG/0.5 ML SYRINGE IVP PRN; +LIDOCAINE 1% (10MG/ML) FOR IV START INTRADERMA PRN; +MIDAZOLAM 2 MG/2 ML VIAL IV PRN; +ONDANSETRON 4 MG/2 ML VIAL IVP ONE; +PANTOPRAZOLE 40 MG/10 ML VIAL IV PRN; +TAMSULOSIN 0.4 MG CAP.ER.24H PO STA; +ceFAZolin 3 GM in SODIUM CHLORIDE 0.9% 100 ML IVPB PRN
[2020-09-30] MEDS ORDERED: LACTATED RINGERS 1,000 ML IV ONE ×6 (11:58→17:30)
[2020-09-30] MEDS ORDERED: MIDAZOLAM 2 MG/2 ML VIAL IV ONE (13:42)
--- NOTE | 2020-09-30 14:01 | P.ANPRN ---
Procedure Note - Anesthesia - Nerve Block Performed Bilateral Transversus Abdominis Time Out Performed: Yes (13:42) Date of Procedure: 09/30/20 Procedure Start Time: 13:42 Procedure Stop Time: 13:57 Location of Patient: PreOp Indication: Acute Post-Operative Pain, Requested by Surgeon (Dr Gayel) Sedation Type: Sedate with meaningful contact maintained Preparation: Sterile Prep Position: Supine Catheter: None Needle Types: Pajunk Needle Gauge: 21 Ultrasound used to visualize needle placement: Yes Ultrasound used to observe medication spread: Yes Injectate: 0.5% Ropivacaine (see comment for volume) (15cc each side, Decadron 4mg each side) Blood Aspirated: No Pain Paresthesia on Injection Noted: No Resistance on Injection: Normal Image Stored and Saved: Yes Events: Uneventful and Well Tolerated
[2020-09-30] MEDS ORDERED: LIDOCAINE 1% INJ 10MG/ML (20 ML MDV) ONE (14:09)
[2020-09-30] MEDS ORDERED: ROPIVACAINE 5 MG/ML 30 ML VIAL ONE (14:09)
[2020-09-30] MEDS ORDERED: fentaNYL (PF) 50 MCG/ML 2 ML AMP ONE (14:09)
[2020-09-30] MEDS ORDERED: GLYCOPYRROLATE 0.2 MG/ML 2 ML VIAL ONE (14:09)
[2020-09-30] MEDS ORDERED: NEOSTIGMINE 1 MG/ML 10 ML VIAL ONE (14:09)
[2020-09-30] MEDS ORDERED: DEXAMETHASONE SOD PHOSPHATE 4 MG/ML 1 ML VIAL ONE (14:09)
[2020-09-30] MEDS ORDERED: ROCURONIUM 10 MG/ML (10 ML VIAL) IV ONE (14:09)
[2020-09-30] MEDS ORDERED: PROPOFOL 10 MG/ML 20 ML VIAL IV ONE (14:09)
[2020-09-30] MEDS ORDERED: SUCCINYLCHOLINE CHLORIDE VIAL 200 MG/10 ML VIAL IV ONE (14:09)
[2020-09-30] MEDS ORDERED: MIDAZOLAM 2 MG/2 ML VIAL ONE (14:09)
[2020-09-30] MEDS ORDERED: ePHEDrine SULFATE/0.9% NACL/PF 50 MG/5 ML SYRINGE IV ONE (14:09)
[2020-09-30] MEDS ORDERED: PHENYLEPHRINE 10 MG/ML VIAL ONE (14:09)
[2020-09-30] MEDS ORDERED: LIDOCAINE 1%-EPI 1:100,000 20 ML VIAL SQ ONE (14:38)
[2020-09-30 16:26] LABS: Glucose,Whole Blood 175 mg/dL (75-99)
[2020-09-30] MEDS: ALBUMIN HUMAN 5% 250 ML in EMPTY BAG 1 BAG IVPB ONE ×2 (16:50→17:07)
[2020-09-30] MEDS: PHENYLEPHRINE 40 MG in SODIUM CHLORIDE 0.9% 250 ML IV SCH ×2 (16:59→19:45)
[2020-09-30] MEDS ORDERED: HYDROmorphone 1 MG/ML 1 ML SYRINGE IVP PRN (18:34)
[2020-09-30] MEDS ORDERED: NALOXONE 0.4 MG/ML 1 ML VIAL IV PRN ×2 (18:34→18:38)
[2020-09-30] MEDS ORDERED: ACETAMINOPHEN IV (For NPO) 1,000 MG in EMPTY BAG 1 BAG IVPB ONE (18:38)
[2020-09-30] MEDS ORDERED: diphenhydrAMINE 50 MG/ML 1 ML VIAL IVP PRN (18:38)
--- NOTE | 2020-09-30 18:44 | P.OP ---
Date of Procedure: 09/30/20 Description of Procedure: SURGEON: TY CRISTINA MD PREOPERATIVE DIAGNOSES: 1. Morbid obesity due to excess calories 2. Body mass index of 60.1, initial 3. Obstructive sleep apnea 4. Chronic soft pulmonary disease 5. Ischemic cardiomyopathy 6. Myocardial infarction 7. Osteoarthritis lower back 8. Hyperlipidemia 9. Coronary artery disease 10. Lymphocytosis 11. Generalized anxiety disorder 12. Depressive disorder 13. Diabetes 2, [id number]-gwovpqrwl, new 14. Vitamin D deficiency 15. Secondary hyperparathyroidism 16. Copper excess 17. Zinc deficiency POSTOPERATIVE DIAGNOSES: 1. Morbid obesity due to excess calories 2. Body mass index of 60.1, initial 3. Obstructive sleep apnea 4. Chronic soft pulmonary disease 5. Ischemic cardiomyopathy 6. Myocardial infarction 7. Osteoarthritis lower back 8. Hyperlipidemia 9. Coronary artery disease 10. Lymphocytosis 11. Generalized anxiety disorder 12. Depressive disorder 13. Diabetes 2, ufv-ioalils-hombpvhaf, new 14. Vitamin D deficiency 15. Secondary hyperparathyroidism 16. Copper excess 17. Zinc deficiency OPERATION: 1. Robotic assisted daVinci Xi laparoscopic sleeve gastrectomy with 40-Pashto bougie, multiport. 2. Intraoperative esophagogastroduodenoscopy. ANESTHESIA: Gen. local anesthetic, TAP block ESTIMATED BLOOD LOSS: 5 mL SPECIMENS REMOVED: Sleeve gastrectomy COMPLICATIONS: None. Operative Findings: 1. Negative intraoperative esophagogastrojejunoscopy leak test. 2. No large hiatus hernia. 3. Total of 8 staplers used including 2 - 60 mm black and 4 - 60 mm green 2- blue robot curtis used to create the gastric sleeve. 4. Sleeve gastrectomy 32 x 5 cm 5. Gastric cardia upon upper endoscopy 6. No encroachment along angularis incisura 7. Densely adherent superior pole of the stomach INDICATIONS: Farhad Lewis is a 55-year-old male who comes in with lifelong morbid obesity. He has completed medically supervised weight loss. As a result of this morbid obesity, he has ischemic cardiomyopathy, myocardial infarction, obstructive sleep apnea, chronic obstructive pulmonary disease, hypertensive heart disease. At height of 5 feet 11.5 inches, his ideal body weight is 178 pounds. He was 432 pounds with body mass index was 60.1. He comes in 394 pounds, BMI 54.3. He is 216 pounds overweight. All surgical options for morbid obesity had been described using the [place] bariatric surgery collaborative comorbidity resolution including complication risk score. A second-generation bariatric consent form was described in detail including the possibility of protein malnutrition, leaks, gastric stricture, venous thrombosis, gastroesophageal reflux disease, need for further surgery for which he demonstrated understanding. Benefits and risks of the procedure were described at length. Informed consent was obtained. DESCRIPTION: The patient was brought into the operating room theater. Preoperatively he had received Lovenox subcutaneously for DVT prophylaxis. Additionally he had Peridex oral solution as an oral decontaminant. After general induction, the abdomen was prepped and draped in standard sterile fashion. An Ioban draping was placed along the abdomen. A robotic da Rahda Xi system was prepped and primed. At 15 cm from the xiphoid, proposed port sites were marked with indelible marker along the anterior axillary line bilaterally, mid axillary line bilaterally with each ports were marked 10 to 15 cm from each other. The workforce development assistant port was marked along the left lateral abdominal wall. The robotic stapler port was marked for the right midclavicular line. A 5 mm 0 degrees laparoscopic trocar entry was performed along the left upper quadrant. The abdomen was insufflated to 15 mmHg pressure he tolerated well. Diagnostic laparoscopy demonstrated no injury to bowel, viscera, or mesentery. The liver surface was unremarkable without evidence of hepatomegaly or fatty liver disease. No injury had occurred to the small bowel or viscera. Along the hiatus no recurrent hiatal hernia was found. A 8 mm port was placed along the right upper abdominal wall after exchanging the 5 mm port. A separate 8 mm port was placed along the left lateral abdominal wall. Please note that the ports were placed at least 20 cm away from the target anatomy. Care was taken to check each robotic arms were safely away from collision with the bed or the patient. At the epigastrium, a medium sized Justin liver retractor was placed under direct visualization with the [place] Development Manager placed under the right shoulder of the patient. Next, 12-mm robot stapler port was placed along the right upper quadrant. The camera 8-mm port was maintained along the epigastrium. The patient was repositioned in reverse Trendelenburg position at 16-degrees after lowering the bed. The robot was docked along the left side of the patient. Using a grasper for arm 4, a veseel sealer for arm 3, including grasper for arm 1, the robotic system was docked and primed as described. Instruments were interchanged by the workforce development assistant for stapler loads. The camera was placed at 30-degrees down. I had sat at the console. The pylorus was identified and 6 cm proximally along the greater curvature of the stomach, the short gastrics were mobilized upwards to the angle of His using a vessel sealer. Hemostasis was excellent during this portion of the procedure. Next, the upper pole of the stomach was adherent to the left caden, which was gently dissected free using atraumatic grasper. An Olympus upper endoscope was inserted into the stomach as a 40-Pashto blunt tip bougie was not available. The scope was positioned at the antrum as a bougie for the sleeve gastrectomy. Robotic stapler black loads 60 mm x 2 followed by green 60 mm x 4, and blue 60- mm x 2, were used to create the sleeve. Initial firing was across the antrum of the stomach towards the angle of His. The staple line was completely hemostatic and linear without corkscrewing. Hemostasis was excellent. The space from the angularis incisura of the sleeve was approximately 4 cm. I then went to the head of the bed to perform the intraoperative esophagogastroduodenoscopy leak test. The upper pole of the stomach was bathed using normal saline solution. The scope was withdrawn with careful inspection along the staple line for which no leaks were found along the entire length. Additionally, the sleeve was completely hemostatic without any encroachment along the angularis incisura. Its topology was a soft "J". No stricture was encountered upon placement of the scope. The GI tract was desufflated. The patient tolerated this portion of the procedure well. The scope was completely withdrawn. The robot was undocked. I then rescrubbed into case, whereby the irrigation fluid was aspirated from the abdominal cavity. Tisseel fibrin sealant was placed along the entire staple length. Once dried the Justin liver retractor was removed. Attention was now brought to removal of the specimen. The distal end of the sleeve gastrectomy specimen was brought out through the 12 mm port at the left upper quadrant. The specimen was gently removed en total, corresponding to 32 cm x 5 cm sleeve gastrectomy specimen. No contamination had occurred during this process. All instruments and pneumoperitoneum including irrigation fluid was removed from the abdominal cavity. The 12 mm port site was irrigated with warm normal saline solution and diluted hydron peroxide. The 12-mm port site was reapproximated using 0 Vicryl and Obdulio-Loi of the left upper quadrant. The final incisions were closed using subcuticular interrupted suture of 4-0 Monocryl. Exofin was applied to the skin once the skin had been cleansed. OptiFoam dressing was placed along the stomach extraction site. At the end of the procedure, needle, sponge, and instrument count was verified correct by the surgical services asst. The patient was taken to the postanesthesia care unit in stable condition. He had tolerated the procedure well. Intraoperative films and findings were reviewed with the patient's family.
[2020-09-30] MEDS ORDERED: SODIUM CHLORIDE 0.9% 1,000 ML IV SCH (18:45)
[2020-09-30 19:26] LABS: Glucose,Whole Blood 150 mg/dL (75-99)
[2020-09-30 19:37] LABS: Glucose,Whole Blood 63 mg/dL (75-99)
[2020-09-30 19:38] LABS: Glucose,Whole Blood 69 mg/dL (75-99)
[2020-09-30 20:05] LABS: Basophils % (A) 0 %; Eosinophils # (A) 0.1 k/uL (0-0.7); Eosinophils % (A) 1 %; HCT 47.3 % (39.0-53.0); HGB 15.3 gm/dL (13.0-17.5); Lymphocytes # (A) 0.4 k/uL (1.0-4.8); Lymphocytes % (A) 3 %; MCH 28.2 pg (25.0-35.0); MCHC 32.3 g/dL (31.0-37.0); MCV 87.2 fL (80.0-100.0); Mean Platelet Volume 7.4; Monocytes # (A) 0.2 k/uL (0-1.0); Monocytes % (A) 2 %; Neutrophils # (A) 10.7 k/uL (1.3-7.7); Neutrophils % (A) 95 %; Platelet Count 267 k/uL (150-450); RBC 5.42 m/uL (4.30-5.90); RDW 15.8 % (11.5-15.5); WBC 11.3 k/uL (3.8-10.6)
[2020-09-30 20:11] LABS: Calcium 8.7 mg/dL (8.4-10.2); Magnesium 1.9 mg/dL (1.6-2.3); Phosphorus 6.1 mg/dL (2.5-4.5); Potassium 4.9 mmol/L (3.5-5.1)
--- NOTE | 2020-09-30 20:23 | XR ---
EXAMINATION TYPE: XR chest 1V portable DATE OF EXAM: 09/30/2020 COMPARISON: NONE HISTORY: Vertebra TECHNIQUE: Single view FINDINGS: Portable exam shows an enlarged heart. There is no heart failure. There is some mild left s alex perihilar atelectasis. There are chest leads. There is no evidence for pleural fluid. There are c hest leads. IMPRESSION: Left side perihilar atelectasis.
[2020-09-30] MEDS: ALBUTEROL NEBULIZED 2.5 MG/3 ML INHALATION SCH (20:41)
[2020-09-30] MEDS: SIMETHICONE 40 MG/0.6 ML DROPS 2,000 MG/30 ML BOTTLE PO SCH (20:53)
[2020-09-30] MEDS: DEXTROSE 5% IN WATER 1,000 ML with SODIUM BICARB (1 MEQ/ML) 150 ML IV SCH (21:44)
[2020-09-30 21:47] LABS: Amorphous Sediment,Urine Rare /hpf; Appearance,Urine Clear (Clear); Bilirubin,Urine Negative (Negative); Blood,Urine Small (Negative); Color,Urine Light Yellow; Glucose,Urine (UA) 2+ (Negative); Hyaline Casts,Urine 1 /lpf (0-2); Ketones,Urine Negative (Negative); Leukocyte Esterase,Urine Negative (Negative); Mucus,Urine Rare /hpf; Nitrite,Urine Negative (Negative); Protein,Urine Trace (Negative); RBC,Urine 3 /hpf (0-5); Specific Gravity,Urine 1.009 (1.001-1.035); Squamous Epithelial Cell,Urine <1 /hpf (0-4); Urobilinogen,Urine <2.0 mg/dL (<2.0); WBC,Urine <1 /hpf (0-5)
[2020-09-30] MEDS ORDERED: ceFAZolin 3 GM in SODIUM CHLORIDE 0.9% 100 ML IVPB SCH (22:00)
--- NOTE | 2020-09-30 23:14 | US ---
EXAMINATION TYPE: US kidneys/renal and bladder DATE OF EXAM: 09/30/2020 COMPARISON: NONE CLINICAL HISTORY: Kidney injury. Kidney injury per order. EXAM MEASUREMENTS: Right Kidney: 12.7 x 6.1 x 7.2 cm Left Kidney: 14.7 x 6.3 x 5.4 cm Exam is limited due to obesity and bowel gas. Right Kidney: Slightly hypoechoic, indistinct area seen laterally measurin.8 x 3.3 x 2.6 cm. Appe ars slightly enlarged. Left Kidney: Appears enlarged. No hydronephrosis or masses seen Bladder: Not visualized. Patient has catheter in place. Bilateral Jets seen: No IMPRESSION: Exam limited by patient's size. There is hypoechoic area that is 3 cm on the right kidney that is pro bably a cortical cyst. Urinary bladder was empty during the exam. No hydronephrosis.
[2020-10-01] MEDS: KETOROLAC 15 MG/ML 1 ML VIAL IVP SCH ×2 (00:32→05:54)
[2020-10-01] MEDS: ONDANSETRON 4 MG/2 ML VIAL IVP SCH ×4 (00:33→17:39)
[2020-10-01] MEDS: SIMETHICONE 40 MG/0.6 ML DROPS 2,000 MG/30 ML BOTTLE PO SCH ×4 (00:33→17:39)
[2020-10-01] MEDS: HYOSCYAMINE ORAL DROPS 1.875 MG/15 ML BOTTLE PO SCH ×4 (00:33→17:40)
[2020-10-01 04:53] LABS: Basophils % (A) 0 %; Eosinophils # (A) 0.1 k/uL (0-0.7); Eosinophils % (A) 1 %; HCT 45.5 % (39.0-53.0); HGB 14.6 gm/dL (13.0-17.5); Lymphocytes # (A) 0.4 k/uL (1.0-4.8); Lymphocytes % (A) 4 %; MCH 27.5 pg (25.0-35.0); MCHC 32.1 g/dL (31.0-37.0); MCV 85.8 fL (80.0-100.0); Mean Platelet Volume 7.6; Monocytes # (A) 0.4 k/uL (0-1.0); Monocytes % (A) 4 %; Neutrophils # (A) 8.5 k/uL (1.3-7.7); Neutrophils % (A) 91 %; Platelet Count 258 k/uL (150-450); RDW 15.9 % (11.5-15.5); WBC 9.4 k/uL (3.8-10.6)
[2020-10-01 05:04] LABS: Calcium 8.7 mg/dL (8.4-10.2); Phosphorus 4.3 mg/dL (2.5-4.5); Potassium 5.4 mmol/L (3.5-5.1)
[2020-10-01] MEDS: DEXTROSE 5% IN WATER 1,000 ML with SODIUM BICARB (1 MEQ/ML) 150 ML IV SCH (05:59)
--- NOTE | 2020-10-01 07:03 | P.CNPUL ---
History of Present Illness Consult date: 10/01/20 Chief complaint: hypotension History of present illness: This is a morbidly obese male patient with known history of serositis sleep apnea with an AHI of 109.7 was admitted on a BiPAP at a pressure of 24/20 cm of water. The patient has a BMI 59 and the patient also has history of coronary artery disease, previous coronary stenting, history of ischemic cardiomyopathy hypertension, chronic back pain and neck pain, hyperlipidemia, , generalized anxiety disorder, depression and history of COPD. The patient underwent gastric sleeve procedure today. The estimated blood loss was less than 5 mL. Postoperative recovery, the patient became hypotensive and the patient required some pressors and for that reason the patient got transferred to the intensive care unit for further care and hemodynamic monitoring. He is on 2 L of oxygen by nasal cannula and a pulse ox97%. Is in sinus rhythm. Currently on normal saline. The 150 mL an hour of normal saline. The patient is awake and alert and he has no complaints for now. his UO and he is producing adequate output. The patient is on Jim 0.8 mcg/kg/min and BP is adequate for now. He has no altered mentation.overnight, the patient stated the intensive care unit. He was given pressors in the form of Jim-Synephrine and this morning this medication was discontinued and his blood pressures up to 111/67. IV fluids are in the form of D5W D5 and 3 A of bicarb at the rate of 150 mL an hour. Note that the blood work from yesterday was quite abnormal. The patient had a non-anion gap meta bolic acidosis in addition to an acute kidney injury. He was started on bicarb infusion.. Creatinine was at 5.86 and is down to 4.49. Nephrology consultation was requested. Ultrasound the kidneys to follow. He does have a Escobar catheter for now. Urine output is noted of the 15th 850 an hour. Review of Systems Constitutional: Reports fatigue, Reports weakness Eyes: denies as per HPI, denies blurred vision, denies bulging eye, denies decreased vision, denies diplopia, denies discharge, denies dry eye, denies irritation, denies itching, denies pain, denies photophobia, denies loss of peripheral vision, denies loss of vision, denies tunnel vision/blind spots Ears: deny: decreased hearing, ear discharge, earache, tinnitus Ears, nose, mouth and throat: Reports as per HPI Breasts: absent: as per HPI, gynecomastia Cardiovascular: Reports as per HPI Respiratory: Reports as per HPI, Reports sleep apnea Gastrointestinal: Reports as per HPI, Reports abdominal pain Genitourinary: Reports as per HPI Musculoskeletal: Reports as per HPI Musculoskeletal: absent: ankle pain, ankle stiffness, ankle swelling Integumentary: Reports as per HPI Neurological: Reports as per HPI Psychiatric: Reports as per HPI Endocrine: Reports as per HPI Hematologic/Lymphatic: Reports as per HPI Allergic/Immunologic: Reports as per HPI Past Medical History Past Medical History: Coronary Artery Disease (CAD), Heart Failure, GERD/Reflux, Hyperlipidemia, Hypertension, Myocardial Infarction (NV), Musculoskeletal Disorder, Osteoarthritis (OA), Sleep Apnea/CPAP/BIPAP, Syncope Additional Past Medical History / Comment(s): Hx of clot in arm after hockey injury. Lower Back pain radiates to buttocks. Coronary Artery Disease (CAD), Heart Failure, GERD/Reflux, Hyperlipidemia, Hypertension, Myocardial Infarction (NV), Musculoskeletal Disorder, Osteoarthritis (OA), Sleep Apnea/CPAP/BIPAP, Syncope Last Myocardial Infarction Date:: 2014 History of Any Multi-Drug Resistant Organisms: None Reported Past Surgical History: Back Surgery, Heart Catheterization With Stent, Hernia Repair, Orthopedic Surgery Additional Past Surgical History / Comment(s): Gastric sleeve and a previous hernia surgery, cardiac cath w/ 2 Stents (2015 @ [facility]", NECK & SPINE SURGERY WITH PLATES & SCREWS AND CADAVER BONE (DR NOLASCO), HAND SURGERY X3 (CRUSHING INJURY). eye surgery d/t infection. PAIN CLINIC PROCEDURES Past Anesthesia/Blood Transfusion Reactions: No Reported Reaction Additional Past Anesthesia/Blood Transfusion Reaction / Comment(s): HX BLOOD TRANSFUSION (INFANT) Date of Last Stent Placement:: 2014 Smoking Status: Former smoker - Past Family History Mother Family Medical History: Myocardial Infarction (NV) Father Family Medical History: Myocardial Infarction (NV) Sister(s) Family Medical History: Thyroid Disorder Medications and Allergies Home Medications Medication Instructions Recorded Confirmed Type Aspirin [Adult Low Dose Aspirin EC] 81 mg PO HS 06/10/20 09/26/20 History Atorvastatin [Lipitor] 80 mg PO HS 06/10/20 09/26/20 History Fenofibrate,Micronized 134 mg PO DAILY 06/10/20 09/26/20 History [Fenofibrate] Lisinopril-Hctz 10-12.5 mg 1 tab PO DAILY 06/10/20 09/26/20 History [Zestoretic 10-12.5] Metoprolol Succinate [Toprol XL] 50 mg PO DAILY 06/10/20 09/26/20 History Nitroglycerin Sl Tabs [Nitrostat] 0.4 mg SUBLINGUAL Q5M PRN 06/10/20 09/26/20 History Omeprazole [PriLOSEC] 40 mg PO DAILY #14 cap 08/22/20 09/26/20 Rx Allergies Allergy/AdvReac Type Severity Reaction Status Date / Time No Known Allergies Allergy Verified 09/26/20 12:01 Physical Exam Vitals: Vital Signs Temp Pulse Pulse Resp BP BP Pulse Ox 10/01/20 06:00 91 24 120/70 95 10/01/20 05:45 89 18 109/62 95 10/01/20 05:30 77 13 110/65 96 10/01/20 05:15 78 14 112/59 96 10/01/20 05:00 70 15 111/62 92 L 10/01/20 04:45 78 15 106/65 92 L 10/01/20 04:30 75 16 108/63 92 L 10/01/20 04:15 94 18 113/73 92 L 10/01/20 04:00 97.8 F 89 16 118/69 94 L 10/01/20 03:45 81 18 108/63 94 L 10/01/20 03:30 81 15 117/62 93 L 10/01/20 03:15 83 16 114/64 92 L 10/01/20 03:00 85 16 111/65 94 L 10/01/20 02:45 86 16 113/59 93 L 10/01/20 02:30 92 17 118/64 93 L 10/01/20 02:15 90 16 124/70 91 L 10/01/20 02:00 87 15 121/74 92 L 10/01/20 01:45 93 17 115/69 92 L 10/01/20 01:30 90 15 99/72 91 L 10/01/20 01:15 96 16 109/64 91 L 10/01/20 01:00 98 19 110/72 93 L 12/08/20 00:45 98 18 113/67 92 L 10/01/20 00:30 96 16 108/66 92 L 10/01/20 00:28 97 17 92 L 10/01/20 00:15 96 17 105/61 92 L 10/01/20 00:00 97.8 F 94 18 100/62 92 L 09/30/20 23:45 98 16 101/63 92 L 09/30/20 23:30 98 19 99/61 91 L 09/30/20 23:15 100 17 100/61 90 L 09/30/20 23:00 101 H 18 104/53 92 L 09/30/20 22:45 109 H 18 99/53 90 L 09/30/20 22:30 108 H 26 H 107/54 90 L 09/30/20 22:15 107 H 11 L 102/63 90 L 09/30/20 22:00 109 H 20 122/84 92 L 09/30/20 21:45 113 H 22 122/74 91 L 09/30/20 21:30 103 H 21 133/82 94 L 09/30/20 21:15 104 H 24 127/78 93 L 09/30/20 21:00 102 H 19 124/79 92 L 09/30/20 20:45 106 H 26 H 123/67 93 L 09/30/20 20:32 95 09/30/20 20:30 112 H 22 130/79 90 L 09/30/20 20:15 105 H 39 H 138/93 90 L 09/30/20 20:00 98.2 F 106 H 18 122/85 91 L 09/30/20 19:45 104 H 24 92 L 09/30/20 19:30 106 H 10 L 131/85 90 L 09/30/20 18:50 100 16 129/66 97 09/30/20 18:30 104 H 16 132/71 97 09/30/20 18:15 103 H 16 129/72 95 09/30/20 18:00 102 H 16 139/74 99 09/30/20 17:45 107 H 16 130/60 98 09/30/20 17:30 107 H 16 116/57 98 09/30/20 17:15 105 H 16 103/52 98 09/30/20 17:10 105 H 16 110/50 98 09/30/20 16:55 100 16 72/63 97 09/30/20 16:40 106 H 16 68/51 99 09/30/20 16:25 103 H 16 79/56 99 09/30/20 16:10 97.2 F L 103 H 14 68/41 92 L 09/30/20 13:53 83 18 96/50 98 09/30/20 11:32 97.9 F 109 H 20 142/78 95 Intake and Output 09/30/20 09/30/20 10/01/20 14:59 22:59 06:59 Intake Total 1100 3835.323 1359.011 Output Total 830 2525 Balance 1100 3005.323 -1165.989 Intake: IV 1100 3668 1350 Dextrose 5% in Water 1, 150 1350 000 ml @ 150 mls/hr IV . Q7H40M OMERO with Sodium Bicarb (1 Meq/ml) 150 ml Rx#:[id number] Sodium Chloride 0.9% 1, 300 000 ml @ 150 mls/hr IV . Q6H40M OMERO Rx#:[id number] Intake, IV Titration 167.323 9.011 Amount Phenylephrine 40 mg In 167.323 9.011 Sodium Chloride 0.9% 250 ml @ 0.5 MCG/KG/MIN 33. 376 mls/hr IV .Q7H37M OMERO Rx#:[id number] Output: Urine 825 2525 Estimated Blood Loss 5 Other: Voiding Method Indwelling Catheter Weight 175.2 kg 179.2 kg Appearance obese, comfortable likely distress, morbidly obese Head exam was generally normal. There was no scleral icterus or corneal arcus. Mucous membranes were moist. Neck was supple and without jugular venous distension, thyromegaly, or carotid bruits. Carotids were easily palpable bilaterally. There was no adenopathy. Patient is a Mallampati class IV with significant crowding of the oropharynx Lungs were clear to auscultation and percussion, and with normal diaphragmatic excursion. No wheezes or rales were noted. Breath sounds are diminished in lung bases bilaterally Cardiac exam revealed the PMI to be normally situated and sized. The rhythm was regular and no extrasystoles were noted during several minutes of auscultation. The first and second heart sounds were normal and physiologic splitting of the second heart sound was noted. There were no murmurs, rubs, clicks, or gallops. Abdomen is soft. Surgical wound site is dry clean and intact. No direct tenderness. No rebound tenderness. No guarding. Bowel sounds are hypoactive. Examination of the extremities revealed easily palpable radial, femoral and pedal pulses. There was no cyanosis, clubbing or edema. Examination of the skin revealed no evidence of significant rashes, suspicious appearing nevi or other concerning lesions. Neurologically, the patient is awake and alert and the patient does not have any focal neurological deficit. Cranial nerves are essentially intact. Results - Laboratory Findings CBC and BMP: 10/01/20 04:14 10/01/20 04:14 Abnormal lab findings: Abnormal Labs 09/30/20 09/30/20 09/30/20 16:25 19:24 19:35 WBC RDW Neutrophils # Lymphocytes # Sodium Potassium Carbon Dioxide BUN Creatinine Glucose POC Glucose (mg/dL) 175 H 150 H 63 L Phosphorus Urine Protein Urine Glucose (UA) Urine Blood Amorphous Sediment Urine Mucus 09/30/20 09/30/20 09/30/20 19:37 19:45 19:45 WBC 11.3 H RDW 15.8 H Neutrophils # 10.7 H Lymphocytes # 0.4 L Sodium 133 L Potassium Carbon Dioxide 15 L BUN 100 H Creatinine 5.36 H Glucose 157 H POC Glucose (mg/dL) 69 L Phosphorus 6.1 H Urine Protein Urine Glucose (UA) Urine Blood Amorphous Sediment Urine Mucus 09/30/20 10/01/20 10/01/20 21:30 04:14 04:14 WBC RDW 15.9 H Neutrophils # 8.5 H Lymphocytes # 0.4 L Sodium 132 L Potassium 5.4 H Carbon Dioxide BUN 96 H Creatinine 4.49 H Glucose 168 H POC Glucose (mg/dL) Phosphorus Urine Protein Trace H Urine Glucose (UA) 2+ H Urine Blood Small H Amorphous Sediment Rare H Urine Mucus Rare H - Diagnostic Findings Chest x-ray: image reviewed Assessment and Plan Plan: 1 Acute hypotension, following gastric sleeve procedure. Consider anesthetic effect in addition to intravascular volume depletion. The patient is currently receiving IV fluids and the patient is requiring low-dose pressors for blood pressure control. No reported bleeding intraoperatively.this morning, the blood pressure has normalized and the patient is currently off pressors. The patient was aggressively resuscitated IV fluids. He received a total of 3.5 L of bolus and subsequently switched her bicarb infusion. 2 acute kidney injury, likely secondary to intravascular volume depletion. The patient is responding nicely to IV fluids. The patient also had a component of non-anion gap metabolic acidosis and he was started on bicarb drip overnight. 3 morbid obesity with a BMI of 59, gastric sleeve and the patient is postop day #1 4 acute hypoxic respiratory failure, currently on 2 L of oxygen by nasal cannula, consider postoperative atelectatic changes in the lung bases, and expected outcome of surgery 5 coronary artery disease with previous coronary intervention and stenting 6 history of ischemic cardiomyopathy 7 severe obstructive sleep apnea with an AHI of 109 and the patient has been on BiPAP at a pressure of 24/20 cm of water 8 osteoarthritis and chronic back and neck pain 9 hyperlipidemia 10 chronic lymphocytosis 11 chronic anxiety and depression disorder Plan Continue IV fluids and switch this patient to normal saline at the rate of 100 mL an hour and stop the bicarb infusion Ultrasound the kidney was noted and there is no evidence of hydronephrosis Monitor renal function and repeat creatinine on a daily basis Nephrology consultation titrate the Jim-Synephrine infusion to maintain a mean arterial pressure above 65, and the patient has been off pressors this morning Monitor hemoglobin and obtain a CBC and complete metabolic profile Wean down the FiO2 and keep the patient currently on 2 liters O2 is a cannula and provide an incentive spirometer Allow the patient to use his own BiPAP unit DVT prophylaxis with Lovenox Dilaudid for pain control Time with Patient: Greater than 30
[2020-10-01] MEDS: SODIUM CHLORIDE 0.9% 1,000 ML IV SCH ×2 (07:12→17:40)
[2020-10-01] MEDS ORDERED: ceFAZolin 3 GM in SODIUM CHLORIDE 0.9% 100 ML IVPB SCH (08:00)
[2020-10-01] MEDS ORDERED: ENOXAPARIN 40 MG/0.4 ML SYRINGE SQ SCH (09:00)
[2020-10-01] MEDS: ALBUTEROL NEBULIZED 2.5 MG/3 ML INHALATION SCH ×4 (09:28→20:02)
[2020-10-01] MEDS: DEXAMETHASONE SOD PHOSPHATE 4 MG/ML 1 ML VIAL IV SCH ×3 (09:52→17:39)
[2020-10-01] MEDS: PANTOPRAZOLE 40 MG/10 ML VIAL IV SCH (09:52)
--- NOTE | 2020-10-01 11:12 | CDI ---
Documentation Clarification Form Date: 10/01/2020 10:52:33 AM From: Latoya JorgensenCorderoFILI lovell, CCDS Admit Date: 09/30/2020 11:08:00 AM Patient Name: Farhad Lewis Visit Number: [id number] Discharge Date: ATTENTION: The Clinical Documentation Specialists (CDI) and [facility] Coding Staff appreciate your assistance in clarifying documentation. Please respond to the clarification below the line at the bottom and electronically sign. The CDI & [facility] Coding staff will review the response and follow-up if needed. Please note: Queries are made part of the Legal Health Record. If you have any questions, please contact the author of this message via ITS. Dr. Oniel Rendon: Per the 10/01 Pulmonary/Critical Care Consult: "Acute hypotension, following gastric sleeve procedure. Consider anesthetic effect in addition to intravascular volume depletion. The patient is currently receiving IV fluids and the patient is requiring low-dose pressors for blood pressure control. No reported bleeding intraoperatively. This morning, the blood pressure has normalized and the patient is currently off pressors. The patient was aggressively resuscitated with IV fluids. He received a total of 3.5 L of bolus and subsequently switched to Bicarb infusion." Patient history/risk factors: Morbid Obesity, BMI >50, OSMAN, COPD, Ischemic Cardiomyopathy, [place], CAD, Coronary Stent, OA lower back, Hyperlipidemia, Lymphocytosis, Generalized Anxiety Disorder and Depressive Disorder. Clinical Indicators: Presented for elective Laparoscopic Gastric Sleeve for Morbid Obesity. Postoperative course as described above. Transferred to ICU for hypotension. 09/30 VS Postoperatively: T 97.2*, P 103^, R 14, BP 68/41, PO 91 10L simple mask. 10/01 VS: T 97.8, P 89, R 16, BP 108/63, PO 94 BiPAP LAB 09/30: WBC 11.3^, Neut 10.7^, Lymph 0.4*, Na 133*, CO2 15*, BUN 100^, Cr 5.36^, Glucose 157^, Phos 6.1^ LAB 10/01: Neut 8.5^, Lymph 0.4*, Na 132*, K 5.4^, BUN 96^, Cr 4.49^, Glucose 168^ Treatment 09/30: IV Lactated Ringers, IV Phenylephrine, I Albumin, IV Dilaudid, IV Tylenol, IV fluid 1,000 mls @ 150 mls/hr q6, INH Ventolin, IV Dextrose/Water w/NaBicarb, IV Cefazolin. Treatment 10/01: IV Toradol, IV Zofran, I fluid 1,000 mls @ 100 mls/hr q10, IV Decadron, IV Cefazolin, Lovenox sq, IV Protonix. In your professional opinion, can you please clarify the following: Shock: o Hypovolemic Shock o Cause o Other type of Shock o Other, please specify o Unable to determine Please clarify is this is an expected or unexpected outcome of the patient's procedure: Due to known co-morbid condition(s), please specify: Due to anesthesia Due to volume depletion Other, please specify: Unable to determine (Last Revision: July 2017) Hypovolemic Shock, due to volume depletion MTDD
--- NOTE | 2020-10-01 12:46 | CONS ---
CONSULTATION REASON FOR CONSULT: Renal failure. HISTORY OF PRESENT ILLNESS: Patient is a 55-year-old male with history of obesity who was admitted for surgery on 09/30/2020. Patient had a gastric sleeve procedure performed yesterday, it was a robotic-assisted Da Radha laparoscopic sleeve gastrectomy. Postoperatively, patient was hypotensive. He subsequently received fluids and blood pressure improved. Patient's creatinine was noted to be 5.3 mg/dL yesterday. Prior to that we have a creatinine of 1.2 on 09/04/2020. Patient was also receiving Toradol. Urine output has been good. Currently patient has an indwelling Escobar catheter, 24 hour urine output was about 3.3 L. He is currently receiving IV fluids at about 150 mL an hour. Blood pressure was about 99 mmHg. It had dropped as low as 68 mmHg yesterday. Patient denies any prior history of kidney diseases. PAST MEDICAL HISTORY: Obesity, coronary artery disease, history of CHF, gastroesophageal reflux disease, hyperlipidemia, history of AL, osteoarthritis, obstructive sleep apnea, syncope, history of DVT in arm after hockey injury, details not clear. PAST SURGICAL HISTORY: Back surgery, cardiac catheterization, gastric sleeve procedure yesterday, coronary stent placement, hernia repair, spine surgery with plates and bones, hand surgery for crushing injury related to hockey. SOCIAL HISTORY: Patient is a former smoker. No history of drug abuse or alcohol abuse. MEDICATIONS: At home prior to admission included Zestoretic, metoprolol, Nitrostat, Prilosec, fenofibrate, aspirin. ALLERGIES: None. REVIEW OF SYSTEMS: As per HPI. Other systems negative. PHYSICAL EXAMINATION: Patient is comfortable, awake, alert, oriented x3, not in any acute distress. Blood pressure currently is 116/68, heart rate 90 per minute, he is afebrile Examination of the heart S1, S2. Examination of the lungs, bilateral breath sounds are heard. Abdomen is soft, nontender. Examination of lower extremities shows trace edema bilaterally. 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 LAB: Show sodium 132, potassium 5.4, chloride 100, CO2 is 22, BUN 96, creatinine 4.49, hemoglobin 14.6 g/dL. ASSESSMENT: 1. Acute kidney injury, ATN associated with hypotension, hypoperfusion as well as use of nonsteroidal anti-inflammatory agents. Serum creatinine has improved. The patient has good urine output. We will continue with the IV fluids and I will discontinue the Toradol. UA shows trace protein, small blood, and this can be repeated down the road. 2. Chronic kidney disease, NKF stage III, previous creatinine 1.2 on 09/04/2020. Etiology likely nephrosclerosis. 3. Hypotension status post surgery, now improved. Patient is maintained on antibiotics. 4. Mild hyperkalemia associated with acute kidney injury, use of NSAIDs. Continue to monitor for now. 5. Obesity, status post gastric sleeve procedure done yesterday. 6. Coronary artery disease with history of coronary stent placement. 7. Right renal cyst, benign appearing. PLAN: Continue IV fluids. DC Toradol. Repeat labs in a.m. Avoid NSAIDs and NALINI inhibitors. The patient will need followup as outpatient for the acute kidney injury and CKD. Thank you for this consultation. Will continue to follow the patient with you during his hospitalization. MMODL / MAYURN: [id number] /
--- NOTE | 2020-10-01 13:40 | P.PN ---
<Cynthia Robison - Last Filed: 10/01/20 13:21> Subjective Progress Note Date: 10/01/20 CHIEF COMPLAINT: Morbid obesity HISTORY OF PRESENT ILLNESS: Patient is status post Robotic assisted daVinci Xi laparoscopic sleeve gastrectomy and Intraoperative esophagogastroduodenoscopy. Patient is currently in the ICU. Patient was transferred to the ICU postoperatively because he became hypotensive and required pressor support. Patient is currently off of any vasopressors. He also had some acute hypoxic respiratory failure and had required oxygen. Patient is now currently on room air. Blood pressure 116/68. Patient is afebrile. WBC 9.4 hemoglobin 14.6 magnesium 2.0 sodium 132 potassium 5.4. Patient also had evidence of acute kidney injury with a creatinine of 5.36. Creatinine today is 4.49. He is being followed by nephrology. Toradol was discontinued due to acute kidney injury. Urine output is adequate. Patient does reports some mild difficulty with swallowing. But he noticed improvement with drinking only small amounts of his liquid diet. He reports his abdominal pain is controlled. He he has had a few episodes of nausea but this has resolved with medication. He denies any flatus or BM. Chest x-ray left side perihilar atelectasis Kidney and bladder ultrasound there is a hypoechoic area that is 3 cm on the right kidney that is probably a cortical cyst. Urinary bladder was emptying during the exam. No hydronephrosis. Upper GI results are pending PHYSICAL EXAM: VITAL SIGNS: Reviewed. GENERAL: Well-developed in no acute distress. HEENT: No sclera icterus. Extraocular movements grossly intact. Moist buccal mucosa. Head is atraumatic, normocephalic. ABDOMEN: Soft. Obese. Nondistended. Incision sites clean dry and intact NEUROLOGIC: Alert and oriented. Cranial nerves II through XII grossly intact. ASSESSMENT: 1. Morbid obesity due to excess calories 2. Body mass index of 60.1, initial 3. Obstructive sleep apnea 4. Chronic soft pulmonary disease 5. Ischemic cardiomyopathy 6. Myocardial infarction 7. Osteoarthritis lower back 8. Hyperlipidemia 9. Coronary artery disease 10. Lymphocytosis 11. Generalized anxiety disorder 12. Depressive disorder 13. Diabetes 2, zyn-[id number], new 14. Vitamin D deficiency 15. Secondary hyperparathyroidism 16. Copper excess 17. Zinc deficiency 18. Acute hypotension status post surgery likely secondary to intravascular volume depletion 19. Acute kidney injury likely secondary to dehydration, hypotension with hypoperfusion, NSAIDs and NALINI inhibitor. 20. Acute hypoxic respiratory failure likely due to postoperative atelectasis 21. Hyperkalemia secondary to acute kidney injury and use of NSAIDs PLAN: -Continue bariatric clear liquid diet -Follow up on upper GI results -Continue IV fluids -Nephrology and critical care service consults and recommendations appreciated -Encourage incentive spirometer use -Encourage patient to ambulate -Continue pain medication as needed -Follow up on CBC and BMP in a.m. -Continue to monitor urine output -GI prophylaxis Protonix and DVT prophylaxis Lovenox Physician Office Admin note has been reviewed by physician. Signing provider agrees with the documented findings, assessment, and plan of care. Objective - Vital Signs Vital signs: Vital Signs Temp 97.8 F 10/01/20 04:00 Pulse 85 10/01/20 09:43 Resp 20 10/01/20 07:15 BP 116/68 10/01/20 07:15 Pulse Ox 91 L 10/01/20 07:15 Intake & Output 09/30/20 10/01/20 10/01/20 18:59 06:59 18:59 Intake Total 4318 1976.334 31.621 Output Total 5 3350 Balance 4313 -1373.666 31.621 Weight 175.2 kg 179.2 kg Intake: IV 4318 1800 Dextrose 5% in Water 1, 1500 000 ml @ 150 mls/hr IV . Q7H40M OMERO with Sodium Bicarb (1 Meq/ml) 150 ml Rx#:[id number] Sodium Chloride 0.9% 1, 300 000 ml @ 150 mls/hr IV . Q6H40M OMERO Rx#:[id number] Intake, IV Titration 176.334 31.621 Amount Phenylephrine 40 mg In 176.334 31.621 Sodium Chloride 0.9% 250 ml @ 0.5 MCG/KG/MIN 33. 376 mls/hr IV .Q7H37M OMERO Rx#:[id number] Output: Urine 3350 Estimated Blood Loss 5 Other: Voiding Method Indwelling Catheter - Labs CBC & Chem 7: 10/01/20 04:14 10/01/20 04:14 Labs: Abnormal Lab Results - Last 24 Hours (Table) 09/30/20 09/30/20 09/30/20 Range/Units 16:25 19:24 19:35 WBC (3.8-10.6) k/uL RDW (11.5-15.5) % Neutrophils # (1.3-7.7) k/uL Lymphocytes # (1.0-4.8) k/uL Sodium (137-145) mmol/L Potassium (3.5-5.1) mmol/L Carbon Dioxide (22-30) mmol/L BUN (9-20) mg/dL Creatinine (0.66-1.25) mg/dL Glucose (74-99) mg/dL POC Glucose (mg/dL) 175 H 150 H 63 L (75-99) mg/dL Phosphorus (2.5-4.5) mg/dL Urine Protein (Negative) Urine Glucose (UA) (Negative) Urine Blood (Negative) Amorphous Sediment (None) /hpf Urine Mucus (None) /hpf 09/30/20 09/30/20 09/30/20 Range/Units 19:37 19:45 19:45 WBC 11.3 H (3.8-10.6) k/uL RDW 15.8 H (11.5-15.5) % Neutrophils # 10.7 H (1.3-7.7) k/uL Lymphocytes # 0.4 L (1.0-4.8) k/uL Sodium 133 L (137-145) mmol/L Potassium (3.5-5.1) mmol/L Carbon Dioxide 15 L (22-30) mmol/L BUN 100 H (9-20) mg/dL Creatinine 5.36 H (0.66-1.25) mg/dL Glucose 157 H (74-99) mg/dL POC Glucose (mg/dL) 69 L (75-99) mg/dL Phosphorus 6.1 H (2.5-4.5) mg/dL Urine Protein (Negative) Urine Glucose (UA) (Negative) Urine Blood (Negative) Amorphous Sediment (None) /hpf Urine Mucus (None) /hpf 09/30/20 10/01/20 10/01/20 Range/Units 21:30 04:14 04:14 WBC (3.8-10.6) k/uL RDW 15.9 H (11.5-15.5) % Neutrophils # 8.5 H (1.3-7.7) k/uL Lymphocytes # 0.4 L (1.0-4.8) k/uL Sodium 132 L (137-145) mmol/L Potassium 5.4 H (3.5-5.1) mmol/L Carbon Dioxide (22-30) mmol/L BUN 96 H (9-20) mg/dL Creatinine 4.49 H (0.66-1.25) mg/dL Glucose 168 H (74-99) mg/dL POC Glucose (mg/dL) (75-99) mg/dL Phosphorus (2.5-4.5) mg/dL Urine Protein Trace H (Negative) Urine Glucose (UA) 2+ H (Negative) Urine Blood Small H (Negative) Amorphous Sediment Rare H (None) /hpf Urine Mucus Rare H (None) /hpf <Sudha Gayle N - Last Filed: 10/02/20 11:55> Objective - Vital Signs Vital signs: Vital Signs Temp 98.1 F 10/02/20 07:20 Pulse 72 10/02/20 08:53 Resp 18 10/02/20 07:20 BP 118/71 10/02/20 07:20 Pulse Ox 90 L 10/02/20 07:20 Intake & Output 10/01/20 10/02/20 10/02/20 18:59 06:59 18:59 Intake Total 1191.621 Output Total 530 1100 Balance 661.621 -1100 Weight 179.2 kg Intake: Intake, IV Titration 831.621 Amount Phenylephrine 40 mg In 31.621 Sodium Chloride 0.9% 250 ml @ 0.5 MCG/KG/MIN 33. 376 mls/hr IV .Q7H37M OMERO Rx#:[id number] Sodium Chloride 0.9% 1, 700 000 ml @ 100 mls/hr IV . Q10H OMERO Rx#:[id number] ceFAZolin 3 gm In Sodium 100 Chloride 0.9% 100 ml @ 200 mls/hr IVPB Q12HR OMERO Rx#:[id number] Oral 360 Output: Urine 530 1100 Other: Voiding Method Indwelling Catheter Indwelling Catheter Indwelling Catheter - Labs CBC & Chem 7: 10/02/20 10:44 10/02/20 07:14 Labs: Abnormal Lab Results - Last 24 Hours (Table) 10/02/20 10/02/20 10/02/20 Range/Units 05:58 07:14 10:44 WBC 10.7 H (3.8-10.6) k/uL RDW 15.7 H 15.9 H (11.5-15.5) % Neutrophils # 9.5 H 9.0 H (1.3-7.7) k/uL Lymphocytes # 0.5 L 0.4 L (1.0-4.8) k/uL BUN 81.0 H (9.0-27.0) mg/dL Creatinine 2.9 H (0.6-1.5) mg/dL Est GFR (CKD-EPI)AfAm 26.8 L (60.0-200.0) Est GFR (CKD-EPI)NonAf 23.1 L (60.0-200.0) BUN/Creatinine Ratio 27.93 H (12.00-20.00) Ratio Glucose 114 H (70-110) mg/dL Calcium 8.6 L (8.7-10.3) mg/dL
[2020-10-01] MEDS: PHENYLEPHRINE 40 MG in SODIUM CHLORIDE 0.9% 250 ML IV SCH ×2 (13:56→14:48)
--- NOTE | 2020-10-01 16:20 | FL ---
EXAMINATION TYPE: FL UGI DATE OF EXAM: 10/01/2020 COMPARISON: None HISTORY: Post gastric sleeve TECHNIQUE: A single contrast UGI study is performed. FINDINGS: Contrast passes from the distal esophagus through the gastric sleeve with severe hesitancy. No extravasation of contrast is evident. This was not observed during fluoroscopy but was demonstrat ed as patent with overhead radiographs. 1 minute 44 seconds fluoroscopy time Images: 37 No free air is noted during this examination. Overhead radiographs were obtained which are unremarkable. IMPRESSIONS: 1. Severe hesitancy passing through the gastric sleeve. However, patency is demonstrated with overhea d radiographs.
[2020-10-01] MEDS: ceFAZolin 3 GM in SODIUM CHLORIDE 0.9% 100 ML IVPB SCH (22:05)
[2020-10-02] MEDS: ONDANSETRON 4 MG/2 ML VIAL IVP SCH ×5 (01:10→23:46)
[2020-10-02] MEDS: DEXAMETHASONE SOD PHOSPHATE 4 MG/ML 1 ML VIAL IV SCH ×5 (01:10→23:46)
[2020-10-02] MEDS: SIMETHICONE 40 MG/0.6 ML DROPS 2,000 MG/30 ML BOTTLE PO SCH ×5 (01:10→23:48)
[2020-10-02] MEDS: HYOSCYAMINE ORAL DROPS 1.875 MG/15 ML BOTTLE PO SCH ×5 (01:12→23:47)
[2020-10-02] MEDS: SODIUM CHLORIDE 0.9% 1,000 ML IV SCH ×3 (04:55→23:56)
[2020-10-02 06:35] LABS: Basophils # (A) 0.1 k/uL (0-0.2); Basophils % (A) 0 %; Eosinophils # (A) 0.1 k/uL (0-0.7); Eosinophils % (A) 1 %; HCT 43.9 % (39.0-53.0); HGB 14.6 gm/dL (13.0-17.5); Lymphocytes # (A) 0.5 k/uL (1.0-4.8); Lymphocytes % (A) 4 %; MCH 28.7 pg (25.0-35.0); MCHC 33.2 g/dL (31.0-37.0); MCV 86.4 fL (80.0-100.0); Mean Platelet Volume 7.8; Monocytes # (A) 0.5 k/uL (0-1.0); Monocytes % (A) 5 %; Neutrophils # (A) 9.5 k/uL (1.3-7.7); Neutrophils % (A) 89 %; Platelet Count 209 k/uL (150-450); RBC 5.08 m/uL (4.30-5.90); RDW 15.7 % (11.5-15.5); WBC 10.7 k/uL (3.8-10.6)
[2020-10-02] MEDS ORDERED: bisacodyL 5 MG TABLET.DR PO PRN (08:00)
[2020-10-02] MEDS: PANTOPRAZOLE 40 MG/10 ML VIAL IV SCH (08:26)
[2020-10-02] MEDS: ENOXAPARIN 30 MG/0.3 ML SYRINGE SQ SCH (08:26)
[2020-10-02] MEDS: ALBUTEROL NEBULIZED 2.5 MG/3 ML INHALATION SCH ×4 (08:42→19:50)
[2020-10-02] MEDS: ceFAZolin 3 GM in SODIUM CHLORIDE 0.9% 100 ML IVPB SCH ×2 (09:48→21:36)
[2020-10-02 10:59] LABS: Basophils % (A) 0 %; Eosinophils # (A) 0.1 k/uL (0-0.7); Eosinophils % (A) 1 %; HCT 45.2 % (39.0-53.0); HGB 15.4 gm/dL (13.0-17.5); Lymphocytes # (A) 0.4 k/uL (1.0-4.8); Lymphocytes % (A) 4 %; MCH 29.3 pg (25.0-35.0); MCHC 34.2 g/dL (31.0-37.0); MCV 85.7 fL (80.0-100.0); Mean Platelet Volume 7.5; Monocytes # (A) 0.4 k/uL (0-1.0); Monocytes % (A) 4 %; Neutrophils % (A) 90 %; Platelet Count 241 k/uL (150-450); RBC 5.28 m/uL (4.30-5.90); RDW 15.9 % (11.5-15.5); WBC 9.9 k/uL (3.8-10.6)
--- NOTE | 2020-10-02 11:08 | P.PN ---
Subjective Progress Note Date: 10/02/20 Principal diagnosis: Hypotension postoperative This is a morbidly obese male patient with known history of serositis sleep apnea with an AHI of 109.7 was admitted on a BiPAP at a pressure of 24/20 cm of water. The patient has a BMI 59 and the patient also has history of coronary artery disease, previous coronary stenting, history of ischemic cardiomyopathy hypertension, chronic back pain and neck pain, hyperlipidemia, , generalized anxiety disorder, depression and history of COPD. The patient underwent gastric sleeve procedure today. The estimated blood loss was less than 5 mL. Postoperative recovery, the patient became hypotensive and the patient required some pressors and for that reason the patient got transferred to the intensive care unit for further care and hemodynamic monitoring. He is on 2 L of oxygen by nasal cannula and a pulse ox97%. Is in sinus rhythm. Currently on normal saline. The 150 mL an hour of normal saline. The patient is awake and alert and he has no complaints for now. his UO and he is producing adequate output. The patient is on Jim 0.8 mcg/kg/min and BP is adequate for now. He has no altered mentation.overnight, the patient stated the intensive care unit. He was given pressors in the form of Jim-Synephrine and this morning this medication was discontinued and his blood pressures up to 111/67. IV fluids are in the form of D5W D5 and 3 A of bicarb at the rate of 150 mL an hour. Note that the blood work from yesterday was quite abnormal. The patient had a non-anion gap metabolic acidosis in addition to an acute kidney injury. He was started on bicarb infusion.. Creatinine was at 5.86 and is down to 4.49. Nephrology consultation was requested. Ultrasound the kidneys to follow. He does have a Escobar catheter for now. Urine output is noted of the 15th 850 an hour. On 10/02/2020 patient seen in a local on selective care unit, his had no acute events overnight, blood pressure has been stable, he continues on IV hydration at 100 ML per hour, he denies any chronic complaints, no shortness of breath, he is pulling [id number] on his incentive spirometer,Tolerating clear liquid diet, no nausea or vomiting, his abdominal incisions are clean dry and intact, abdominal binder is in place, he is producing adequate urine. His labs have been reviewed showing white blood cell count of 10.7, hemoglobin of 14.6, today's electrolytes and renal profile are still pending at this time, his had no fever or chills, he is on room air with a pulse ox of 95%, no acute events overnight. Objective - Vital Signs Vital signs: Vital Signs Temp 98.1 F 10/02/20 07:20 Pulse 72 10/02/20 08:53 Resp 18 10/02/20 07:20 BP 118/71 10/02/20 07:20 Pulse Ox 90 L 10/02/20 07:20 Intake & Output 10/01/20 10/02/20 10/02/20 18:59 06:59 18:59 Intake Total 1191.621 Output Total 530 1100 Balance 661.621 -1100 Intake: Intake, IV Titration 831.621 Amount Phenylephrine 40 mg In 31.621 Sodium Chloride 0.9% 250 ml @ 0.5 MCG/KG/MIN 33. 376 mls/hr IV .Q7H37M OMERO Rx#:[id number] Sodium Chloride 0.9% 1, 700 000 ml @ 100 mls/hr IV . Q10H OMERO Rx#:[id number] ceFAZolin 3 gm In Sodium 100 Chloride 0.9% 100 ml @ 200 mls/hr IVPB Q12HR OMERO Rx#:[id number] Oral 360 Output: Urine 530 1100 Other: Voiding Method Indwelling Catheter Indwelling Catheter Indwelling Catheter - Exam GENERAL EXAM: Alert, Very pleasant, Morbidly obese 55-year-old white male, on room air with a pulse ox of 95%, sitting up in the recliner,comfortable in no apparent distress. HEAD: Normocephalic/atraumatic. EYES: Normal reaction of pupils, equal size. Conjunctiva pink, sclera white. NOSE: Clear with pink turbinates. THROAT: No erythema or exudates. NECK: No masses, no JVD, no thyroid enlargement, no adenopathy. CHEST: No chest wall deformity. Symmetrical expansion. LUNGS: Equal air entry with no crackles, wheeze, rhonchi or dullness. CVS: Regular rate and rhythm, normal S1 and S2, no gallops, no murmurs, no rubs ABDOMEN: Soft, nontender. No hepatosplenomegaly, normal bowel sounds, no guarding or rigidity. abdominal incisions are clean dry and intact, abdominal binder is in place EXTREMITIES: No clubbing, no edema, no cyanosis, 2+ pulses and upper and lower extremities. MUSCULOSKELETAL: Muscle strength and tone normal. SPINE: No scoliosis or deformity SKIN: No rashes CENTRAL NERVOUS SYSTEM: Alert and oriented -3. No focal deficits, tone is normal in all 4 extremities. PSYCHIATRIC: Alert and oriented -3. Appropriate affect. Intact judgment and insight. - Labs CBC & Chem 7: 10/02/20 10:44 10/01/20 04:14 Labs: Abnormal Lab Results - Last 24 Hours (Table) 10/02/20 10/02/20 Range/Units 05:58 10:44 WBC 10.7 H (3.8-10.6) k/uL RDW 15.7 H 15.9 H (11.5-15.5) % Neutrophils # 9.5 H 9.0 H (1.3-7.7) k/uL Lymphocytes # 0.5 L 0.4 L (1.0-4.8) k/uL Assessment and Plan Plan: Assessment: 1 Acute hypotension, following gastric sleeve procedure, Resolved, and has been stable in last 24 hours, patient has been transferred out of the intensive care unit yesterday,and has maintained stable blood pressures Consider anesthetic effect in addition to intravascular volume depletion. The patient is currently receiving IV fluids and the patient is requiring low-dose pressors for blood pressure control. No reported bleeding intraoperatively.this morning, the blood pressure has normalized and the patient is currently off pressors. The patient was aggressively resuscitated IV fluids. He received a total of 3.5 L of bolus and subsequently switched her bicarb infusion. 2 acute kidney injury, likely secondary to intravascular volume depletion. The patient is responding nicely to IV fluids. The patient also had a component of non-anion gap metabolic acidosis and he was started on bicarb drip overnight. 3 morbid obesity with a BMI of 59, gastric sleeve and the patient is postop day #2 4 acute hypoxic respiratory failure, currently on 2 L of oxygen by nasal cannula, consider postoperative atelectatic changes in the lung bases, and expected outcome of surgery 5 coronary artery disease with previous coronary intervention and stenting 6 history of ischemic cardiomyopathy 7 severe obstructive sleep apnea with an AHI of 109 and the patient has been on BiPAP at a pressure of 24/20 cm of water 8 osteoarthritis and chronic back and neck pain 9 hyperlipidemia 10 chronic lymphocytosis 11 chronic anxiety and depression disorder Plan: Patient is doing well, no acute events overnight, blood pressure has been stable, continues on IV hydration, no fever or chills, no pulmonary complaints, continue encouraging deep breathing and coughing incentive spirometry use. Pulmonary/critical care service will sign off in follow-up on as-needed basis. I performed a history & physical examination of the patient and discussed their management with my nurse practitioner, Ladonna Jimenez. I reviewed the nurse practitioner's note and agree with the documented findings and plan of care. Lung sounds are positive for clear breath sounds throughout the lung delarosa. The findings and the impression was discussed with the patient. I attest to the documentation by the nurse practitioner. Time with Patient: Less than 30
[2020-10-02] MEDS: ACETAMINOPHEN IV (For NPO) 1,000 MG in EMPTY BAG 1 BAG IVPB SCH ×4 (11:14→23:46)
[2020-10-02 11:45] LABS: African American GFR (CKD) 26.8 (60.0-200.0); Anion Gap 9.1 mmol/L (4.00-12.00); BUN/Creat Ratio 27.93 Ratio (12.00-20.00); Calcium 8.6 mg/dL (8.7-10.3); Carbon Dioxide 25.9 mmol/L (21.6-31.8); Non-African American GFR(CKD) 23.1 (60.0-200.0); Potassium 4.9 mmol/L (3.5-5.5)
[2020-10-02 11:48] VITALS: BMI 54.3
--- NOTE | 2020-10-02 11:58 | P.PN ---
Progress Note - Text Progress Note Date: 10/01/20 Patient seen and evaluated Acute kidney failure secondary to dehydration, increased protein intake and NALINI inhibitor use. Patient also has hypoperfusion secondary to Jim-Synephrine to maintain blood pressure. Otherwise, no prolonged exposure to NSAIDs had occurred. Reassessment this evening, patient reports he is tolerating liquids. Escobar catheter present and clear with moderate urine. Appreciate nephrology input. Continue hospitalization until renal function improves. Upper GI also reviewed without leak.
--- NOTE | 2020-10-02 13:14 | P.PN ---
Subjective Progress Note Date: 10/02/20 CHIEF COMPLAINT: Morbid obesity HISTORY OF PRESENT ILLNESS: Patient is status post Robotic assisted daVinci Xi laparoscopic sleeve gastrectomy and Intraoperative esophagogastroduodenoscopy. Postop day #2. Patient was transferred out of the ICU yesterday. Urine output has been adequate. Creatinine is showing improvement has dropped from 4.49-2.9. Patient reports improvement in his swallowing. He is tolerating the bariatric clear liquid diet. He is passing gas. He reports improvement in his abdominal pain. Upper GI had shown severe hesitancy passing through the gastric sleeve. However, patency is demonstrated with overhead radiographs. Patient is afebrile. WBC is 10.7 potassium is 4.9. Patient is up and ambulating. Patient's blood pressures have shown improvement. Blood pressure this morning was 118/71 PHYSICAL EXAM: VITAL SIGNS: Reviewed. GENERAL: Well-developed in no acute distress. HEENT: No sclera icterus. Extraocular movements grossly intact. Moist buccal mucosa. Head is atraumatic, normocephalic. ABDOMEN: Soft. Obese. Nondistended. Incision sites clean dry and intact NEUROLOGIC: Alert and oriented. Cranial nerves II through XII grossly intact. ASSESSMENT: 1. Morbid obesity due to excess calories status post Robotic assisted daVinci Xi laparoscopic sleeve gastrectomy and Intraoperative esophagogastroduodenoscopy 2. Body mass index of 60.1, initial 3. Obstructive sleep apnea 4. Chronic soft pulmonary disease 5. Ischemic cardiomyopathy 6. Myocardial infarction 7. Osteoarthritis lower back 8. Hyperlipidemia 9. Coronary artery disease 10. Lymphocytosis 11. Generalized anxiety disorder 12. Depressive disorder 13. Diabetes 2, [id number]-emohqqryv, new 14. Vitamin D deficiency 15. Secondary hyperparathyroidism 16. Copper excess 17. Zinc deficiency 18. Acute hypotension status post surgery likely secondary to intravascular volume depletion 19. Acute kidney injury likely secondary to dehydration, hypotension with hypoperfusion, NSAIDs and NALINI inhibitor. 20. Acute hypoxic respiratory failure likely due to postoperative atelectasis 21. Hyperkalemia secondary to acute kidney injury and use of NSAIDs PLAN: -Continue bariatric clear liquid diet -Discontinue Escobar catheter -Continue IV fluids -Nephrology and critical care service consults and recommendations appreciated -Encourage incentive spirometer use -Encourage patient to ambulate -Continue pain medication as needed -Follow up on CBC and BMP in a.m. -GI prophylaxis Protonix and DVT prophylaxis Lovenox Physician Doll [employer] note has been reviewed by physician. Signing provider agrees with the documented findings, assessment, and plan of care. Objective - Vital Signs Vital signs: Vital Signs Temp 98.1 F 10/02/20 07:20 Pulse 72 10/02/20 12:56 Resp 18 10/02/20 07:20 BP 118/71 10/02/20 07:20 Pulse Ox 90 L 10/02/20 07:20 Intake & Output 10/01/20 10/02/20 10/02/20 18:59 06:59 18:59 Intake Total 1191.621 Output Total 530 1100 Balance 661.621 -1100 Weight 179.2 kg Intake: Intake, IV Titration 831.621 Amount Phenylephrine 40 mg In 31.621 Sodium Chloride 0.9% 250 ml @ 0.5 MCG/KG/MIN 33. 376 mls/hr IV .Q7H37M [facility] Rx#:[id number] Sodium Chloride 0.9% 1, 700 000 ml @ 100 mls/hr IV . Q10H [facility] Rx#:[id number] ceFAZolin 3 gm In Sodium 100 Chloride 0.9% 100 ml @ 200 mls/hr IVPB Q12HR [facility] Rx#:[id number] Oral 360 Output: Urine 530 1100 Other: Voiding Method Indwelling Catheter Indwelling Catheter Indwelling Catheter - Labs CBC & Chem 7: 10/02/20 10:44 10/02/20 07:14 Labs: Abnormal Lab Results - Last 24 Hours (Table) 10/02/20 10/02/20 10/02/20 Range/Units 05:58 07:14 10:44 WBC 10.7 H (3.8-10.6) k/uL RDW 15.7 H 15.9 H (11.5-15.5) % Neutrophils # 9.5 H 9.0 H (1.3-7.7) k/uL Lymphocytes # 0.5 L 0.4 L (1.0-4.8) k/uL BUN 81.0 H (9.0-27.0) mg/dL Creatinine 2.9 H (0.6-1.5) mg/dL Est GFR (CKD-EPI)AfAm 26.8 L (60.0-200.0) Est GFR (CKD-EPI)NonAf 23.1 L (60.0-200.0) BUN/Creatinine Ratio 27.93 H (12.00-20.00) Ratio Glucose 114 H (70-110) mg/dL Calcium 8.6 L (8.7-10.3) mg/dL
--- NOTE | 2020-10-02 16:36 | PN ---
PROGRESS NOTE Patient is seen for followup for acute kidney injury. His renal function has been improving, with serum creatinine down to 2.9 now from 5.36. Previous creatinine was 1.2 on 09/04/2020. Overall patient is feeling well. He has had good urine output. He denies any significant complaints post surgery for gastric sleeve procedure. PHYSICAL EXAMINATION: On examination today, blood pressure is 113/75, heart rate 82 per minute. He is afebrile. EXAMINATION OF THE HEART: S1 and S2. EXAMINATION OF LUNGS: Bilateral breath sounds are heard. ABDOMEN: Soft, non-tender, obese. Examination of lower extremities shows edema 1+ bilaterally. DEPUTY GRAND JURY exam is grossly intact. LABS: Labs show sodium 138, potassium 4.9, chloride 103, BUN 81, serum creatinine 2.9, hemoglobin 15.4 g/dL. ASSESSMENT: 1. Acute kidney injury, multifactorial, including hypotension and nonsteroidal anti- inflammatory agents, currently improving. I will decrease the IV fluids, and patient is encouraged to increase his oral intake, particularly protein. 2. Status post gastric sleeve procedure for obesity. 3. Hypotension postoperatively, currently resolved. 4. Chronic kidney disease, stage 3. Previous creatinine 1.2 on 09/04/2020, most likely secondary to nephrosclerosis. 5. Right renal cyst, benign-appearing. 6. Coronary artery disease with history of coronary stent placement. 7. Mild hyperkalemia associated with acute kidney injury and use of NSAIDs, now improved. PLAN: Decrease IV fluids. Repeat labs in a.m. Continue to avoid NSAIDs and NALINI inhibitors for now. MMODL / IJN: [id number] /
[2020-10-03 01:18] VITALS: RESP 16
[2020-10-03] MEDS: DEXAMETHASONE SOD PHOSPHATE 4 MG/ML 1 ML VIAL IV SCH ×2 (05:09→12:03)
[2020-10-03] MEDS: ONDANSETRON 4 MG/2 ML VIAL IVP SCH ×2 (05:10→12:03)
[2020-10-03] MEDS: SIMETHICONE 40 MG/0.6 ML DROPS 2,000 MG/30 ML BOTTLE PO SCH ×2 (05:10→12:04)
[2020-10-03] MEDS: HYOSCYAMINE ORAL DROPS 1.875 MG/15 ML BOTTLE PO SCH ×2 (05:10→12:03)
[2020-10-03] MEDS ORDERED: TAMSULOSIN 0.4 MG CAP.ER.24H PO STA (06:56)
[2020-10-03] MEDS: ALBUTEROL NEBULIZED 2.5 MG/3 ML INHALATION SCH ×3 (07:31→16:48)
[2020-10-03 08:09] LABS: Basophils % (A) 0 %; Eosinophils % (A) 0 %; HCT 44.1 % (39.0-53.0); HGB 14.8 gm/dL (13.0-17.5); Lymphocytes # (A) 0.6 k/uL (1.0-4.8); Lymphocytes % (A) 7 %; MCH 28.8 pg (25.0-35.0); MCHC 33.5 g/dL (31.0-37.0); Mean Platelet Volume 7.4; Monocytes # (A) 0.4 k/uL (0-1.0); Monocytes % (A) 5 %; Neutrophils # (A) 7.3 k/uL (1.3-7.7); Neutrophils % (A) 87 %; Platelet Count 222 k/uL (150-450); RBC 5.13 m/uL (4.30-5.90); RDW 15.8 % (11.5-15.5); WBC 8.4 k/uL (3.8-10.6)
[2020-10-03 08:19] LABS: African American GFR (CKD) 38 (>60 ml/min/1.73 sqM); Anion Gap 8 mmol/L; Blood Urea Nitrogen 59 mg/dL (9-20); Carbon Dioxide 26 mmol/L (22-30); Chloride 103 mmol/L (98-107); Glucose 116 mg/dL (74-99); Non-African American GFR(CKD) 33 (>60 ml/min/1.73 sqM); Potassium 5.2 mmol/L (3.5-5.1); Sodium 137 mmol/L (137-145)
[2020-10-03] MEDS: PANTOPRAZOLE 40 MG/10 ML VIAL IV SCH (08:29)
[2020-10-03] MEDS: ENOXAPARIN 30 MG/0.3 ML SYRINGE SQ SCH (08:29)
[2020-10-03] MEDS ORDERED: FUROSEMIDE 10 MG/ML 4 ML VIAL IV STA (09:28)
[2020-10-03] MEDS: ceFAZolin 3 GM in SODIUM CHLORIDE 0.9% 100 ML IVPB SCH (09:48)
--- NOTE | 2020-10-03 14:28 | P.DS ---
Providers Date of admission: 09/30/20 11:08 Expected date of discharge: 10/03/20 Attending physician: Sudha Gayle Consults: 09/30/20 18:34 Consult Physician Stat Consulting Provider: Leny Sanz Consult Reason/Comments: Critical care management Do you want consulting provider notified?: Yes 09/30/20 20:42 Consult Physician Urgent Consulting Provider: Kasey Zimmerman Consult Reason/Comments: Kidney injury Do you want consulting provider notified?: Yes, Notify in am Primary care physician: Chito Parra Hospital Course: Discharge diagnosis 1. Morbid obesity due to excess calories status post Robotic assisted daVinci Xi laparoscopic sleeve gastrectomy and Intraoperative esophagogastroduodenoscopy 2. Body mass index of 60.1, initial 3. Obstructive sleep apnea 4. Chronic soft pulmonary disease 5. Ischemic cardiomyopathy 6. Myocardial infarction 7. Osteoarthritis lower back 8. Hyperlipidemia 9. Coronary artery disease 10. Lymphocytosis 11. Generalized anxiety disorder 12. Depressive disorder 13. Diabetes 2, uvt-yjdrbbx-ymqwnuzfx, new 14. Vitamin D deficiency 15. Secondary hyperparathyroidism 16. Copper excess 17. Zinc deficiency 18. Acute hypotension status post surgery likely secondary to intravascular volume depletion 19. Acute kidney injury likely secondary to dehydration, hypotension with hypoperfusion, increase protein intake and NALINI inhibitor. 20. Acute hypoxic respiratory failure likely due to postoperative atelectasis 21. Hyperkalemia secondary to acute kidney injury 22. Hypoperfusion secondary to Jim-Synephrine to maintain blood pressure. Hospital course This is a 55-year-old male with a known history of morbid obesity who is status post Robotic assisted daVinci Xi laparoscopic sleeve gastrectomy and Intraop erative esophagogastroduodenoscopy. Patient was transferred to the ICU postoperatively because he became hypotensive and required pressor support. Patient also had evidence of acute kidney injury which was due to dehydration, hypotension with hypoperfusion, increase protein intake and NALINI inhibitor. Patient was treated with IV fluids. He was evaluated by nephrology. His kidney functions are improving. His urine output is adequate. Upper GI did show severe hesitancy passing through the gastric sleeve. However, patency is demonstrated with overhead radiographs. Patient is tolerating bariatric clear liquid diet. He denies any issues with swallowing. He is afebrile. He is up and ambulating. He is having bowel movements and passing gas. Patient is stable for discharge. Please refer to chart for any further details. Physician [employer] Crew[employer] note has been reviewed by physician. Signing provider agrees with the documented findings, assessment, and plan of care. Patient Condition at Discharge: Stable Plan - Discharge Summary Discharge Rx Participant: No New Discharge Prescriptions: New bisacodyL [Dulcolax] 5 mg PO DAILY PRN #10 tablet.dr NICKERSON Reason: Constipation Simethicone 40 mg/0.6 ml Drops [Mylicon Drops] 40 mg PO PCHS PRN #30 ml PRN Reason: Gas Omeprazole [PriLOSEC] 40 mg PO DAILY #30 capsule. Ondansetron Odt [Zofran Odt] 4 mg PO Q8HR PRN #9 tab PRN Reason: Nausea Acetaminophen Oral Susp [Tylenol] 1,000 mg PO Q4-6H PRN #400 ml PRN Reason: Pain Continue Nitroglycerin Sl Tabs [Nitrostat] 0.4 mg SUBLINGUAL Q5M PRN PRN Reason: Chest Pain Discontinued Aspirin [Adult Low Dose Aspirin EC] 81 mg PO HS Atorvastatin [Lipitor] 80 mg PO HS Fenofibrate,Micronized [Fenofibrate] 134 mg PO DAILY Lisinopril-Hctz 10-12.5 mg [Zestoretic 10-12.5] 1 tab PO DAILY Metoprolol Succinate [Toprol XL] 50 mg PO DAILY Omeprazole [PriLOSEC] 40 mg PO DAILY #14 cap Discharge Medication List Nitroglycerin Sl Tabs [Nitrostat] 0.4 mg SUBLINGUAL Q5M PRN 06/10/20 [History] Acetaminophen Oral Susp [Tylenol] 1,000 mg PO Q4-6H PRN #400 ml 10/03/20 [Rx] Omeprazole [PriLOSEC] 40 mg PO DAILY #30 capsule. 10/03/20 [Rx] Ondansetron Odt [Zofran Odt] 4 mg PO Q8HR PRN #9 tab 10/03/20 [Rx] Simethicone 40 mg/0.6 ml Drops [Mylicon Drops] 40 mg PO PCHS PRN #30 ml 10/03/20 [Rx] bisacodyL [Dulcolax] 5 mg PO DAILY PRN #10 tablet. 10/03/20 [Rx] Follow up Appointment(s)/Referral(s): Kasey Zimmerman MD [STAFF PHYSICIAN] - 1 Week (In [place] office) [place], [place] [NON-STAFF] - 10/09/20 Patient Instructions/Handouts: Potassium Content of Foods List (DC), Nutrition after Bariatric Surgery (DC), Laparoscopic Sleeve Gastrectomy (DC) Activity/Diet/Wound Care/Special Instructions: Wear abdominal binder at all times for comfort. No lifting over 4 pounds in 4 weeks until Oct 31February shower. No bath tub soaks for two weeks until Oct 14 Avoid steak, tough meats and seeds such as raspberry seeds. Use Tylenol scheduled for the next 24-48 hours for best pain relief. Use ice along incisions for the today to prevent swelling. No straws or carbonated beverages Start protein shake diet Discharge Disposition: HOME SELF-CARE
[2020-10-03 14:34] VITALS: BP 125/83; PULSE 70; TEMP 98
--- NOTE | 2020-10-03 15:53 | PN ---
PROGRESS NOTE Patient is seen for followup for acute kidney injury. His renal function has been improving. Overall patient feels fairly well. No significant pain. He is tolerating oral intake. PHYSICAL EXAMINATION: On examination today, blood pressure was 125/83, heart rate 70 per minute. He is afebrile. EXAMINATION OF THE HEART: S1 and S2. EXAMINATION OF LUNGS: Bilateral breath sounds are heard. ABDOMEN: Soft, obese, non-tender. Examination of lower extremities shows edema 2+ bilaterally. Chronic skin changes noted. SERVICE ARCHITECT exam is grossly intact. LABS: Labs show sodium 137, potassium 5.2, chloride 103, BUN 59, creatinine 2.1, hemoglobin 14.8 g/dL. ASSESSMENT: 1. Acute kidney injury, multifactorial, associated with hypotension, hypoperfusion, use of nonsteroidal anti-inflammatory agents, currently improved. There is evidence of mild volume overload. The patient will be given a dose of Lasix today and he can resume hydrochlorothiazide as outpatient if blood pressure allows. 2. Mild hyperkalemia. Expect improvement post loop diuretics in the IV today. The patient is advised regarding restriction of potassium foods. 3. Volume overload. I will give him a dose of IV Lasix today. Patient should maintain salt restriction and he can resume hydrochlorothiazide without the lisinopril as outpatient if his blood pressure allows. 4. Status post gastric sleeve procedure. PLAN: Patient can be discharged from nephrology standpoint. Continue to hold off on NALINI inhibitors for now. Maintain low-potassium diet and add hydrochlorothiazide down the road as outpatient without the lisinopril if his blood pressure allows. As long as the systolic blood pressure is above 120 mmHg, we can use a small dose of hydrochlorothiazide. MMODL / IJN: [id number] /
[2020-10-03] MEDS ORDERED: ceFAZolin 3 GM in SODIUM CHLORIDE 0.9% 100 ML IVPB SCH (18:00)
[2020-10-04] MEDS ORDERED: ENOXAPARIN 40 MG/0.4 ML SYRINGE SQ SCH (09:00)
== END 2020-10-03 16:43 | disposition home or self-care (01) | DRG 619 ==
LOC: 2ORMAIN 11:08 → 2SICU 17:26 → 4SSUR 10-01 18:05
PROVIDERS: ADMIT Surgery Plastic and Reconstructive Surgery; ATTEND Surgery Plastic and Reconstructive Surgery
PROC: 8E0W4CZ Robotic Assisted Procedure of Trunk Region, Percutaneous Endoscopic Approach (ICD-10-PCS; principal; 2020-09-30 13:10)
PROC: 0DJ08ZZ Inspection of Upper Intestinal Tract, Via Natural or Artificial Opening Endoscopic (ICD-10-PCS; principal; 2020-09-30 13:10)
PROC: 0DB64Z3 Excision of Stomach, Percutaneous Endoscopic Approach, Vertical (ICD-10-PCS; principal; 2020-09-30 13:10)
DX: E66.01 Morbid (severe) obesity due to excess calories (principal); J96.01 Acute respiratory failure with hypoxia; N17.0 Acute kidney failure with tubular necrosis; R57.1 Hypovolemic shock; E87.2 Acidosis; I13.0 Hypertensive heart and chronic kidney disease with heart failure and stage 1 through stage 4 chronic kidney disease, or unspecified chronic kidney disease; J98.11 Atelectasis; N25.81 Secondary hyperparathyroidism of renal origin; Z68.43 Body mass index [BMI] 50.0-59.9, adult; E11.22 Type 2 diabetes mellitus with diabetic chronic kidney disease; I50.9 Heart failure, unspecified; J44.9 Chronic obstructive pulmonary disease, unspecified; N18.30 Chronic kidney disease, stage 3 unspecified; E55.9 Vitamin D deficiency, unspecified; D72.820 Lymphocytosis (symptomatic); E60 Dietary zinc deficiency; E78.5 Hyperlipidemia, unspecified; E86.0 Dehydration; E87.5 Hyperkalemia; F32.9 Major depressive disorder, single episode, unspecified; F41.1 Generalized anxiety disorder; G47.33 Obstructive sleep apnea (adult) (pediatric); G89.29 Other chronic pain; I25.10 Atherosclerotic heart disease of native coronary artery without angina pectoris; I25.2 Old myocardial infarction; I25.5 Ischemic cardiomyopathy; K21.00 Gastro-esophageal reflux disease with esophagitis, without bleeding; M47.9 Spondylosis, unspecified; N28.1 Cyst of kidney, acquired; T39.395A Adverse effect of other nonsteroidal anti-inflammatory drugs [NSAID], initial encounter; Z79.82 Long term (current) use of aspirin; Z79.899 Other long term (current) drug therapy; Z86.718 Personal history of other venous thrombosis and embolism; Z87.891 Personal history of nicotine dependence; Z95.5 Presence of coronary angioplasty implant and graft; Z87.19 Personal history of other diseases of the digestive system; Z98.890 Other specified postprocedural states; Z82.49 Family history of ischemic heart disease and other diseases of the circulatory system; Z83.49 Family history of other endocrine, nutritional and metabolic diseases; Z84.89 Family history of other specified conditions
CPT/HCPCS: 64488; 71045; 74240; 76770; 80048; 81001; 83735; 84100; 85025; 86850; 86900; 86901; 88307; 94640

== ENCOUNTER → 2020-10-07 | Outpatient (CLI) | payer BC ==
[2020-10-07 11:31] VITALS: BP 136/94; PULSE 100; RESP 20; TEMP 97.8; BMI 52.3
== END | disposition home or self-care (01) ==
LOC: BARWHC3 10:25
PROVIDERS: ATTEND Surgery Plastic and Reconstructive Surgery
DX: E66.01 Morbid (severe) obesity due to excess calories (principal); Z68.43 Body mass index [BMI] 50.0-59.9, adult; Z98.84 Bariatric surgery status
CPT/HCPCS: 99211

== ENCOUNTER → 2020-10-09 | Outpatient (CLI) | payer BC ==
[2020-10-09 15:56] VITALS: BP 153/95; PULSE 105; RESP 20; TEMP 97.5; BMI 52.6
--- NOTE | 2020-10-09 16:06 | P.PN ---
Subjective Progress Note Date: 10/09/20 He has much energy s/p sleeve gastrectomy. Medications reviewed. He has lost 50 pounds in 3 months. He reports dry taste in the mouth. Incision are intact. He feels full after 2 protein shakes. He is keeping up with his diet. Objective - Vital Signs Vital signs: Vital Signs Temp 97.5 F L 10/09/20 15:51 Pulse 105 H 10/09/20 15:51 Resp 20 10/09/20 15:51 BP 153/95 10/09/20 15:51 Pulse Ox Intake & Output 10/08/20 10/09/20 10/09/20 18:59 06:59 18:59 Weight 173.454 kg
== END | disposition home or self-care (01) ==
LOC: BARWHC3 15:32
PROVIDERS: ATTEND Surgery Plastic and Reconstructive Surgery
DX: Z48.815 Encounter for surgical aftercare following surgery on the digestive system (principal); E66.01 Morbid (severe) obesity due to excess calories; Z98.84 Bariatric surgery status; Z71.3 Dietary counseling and surveillance
CPT/HCPCS: 97803; 99211

== ENCOUNTER → 2020-10-16 | Outpatient (CLI) | payer BC ==
[2020-10-16 13:11] VITALS: BP 152/105; PULSE 96; RESP 20; TEMP 97.5; BMI 51.4
--- NOTE | 2020-10-16 13:47 | P.PN ---
Subjective Progress Note Date: 10/16/20 Doing well. He is eager to go back to work. He lost 60 pounds in 3 months. Lost 7 pounds in 1 week. No GERD. He reports burping. Food lingers in his mouth. No dyphagia. Objective - Vital Signs Vital signs: Vital Signs Temp 97.5 F L 10/16/20 13:06 Pulse 96 10/16/20 13:06 Resp 20 10/16/20 13:06 BP 152/105 10/16/20 13:06 Pulse Ox Intake & Output 10/15/20 10/16/20 10/16/20 18:59 06:59 18:59 Weight 169.644 kg
--- NOTE | 2020-10-16 13:50 | P.PN ---
Progress Note - Text Progress Note Date: 10/16/20 To whom it may concern: Farhad Lewis is my surgical patient. He may return to work October 21, 2020 with restrictions of 10 pounds through November 03. He may be off restrictions, November 04. Regards, Sudha Gayle MD FACS
== END | disposition home or self-care (01) ==
LOC: BARWHC3 12:58
PROVIDERS: ATTEND Surgery Plastic and Reconstructive Surgery
DX: E66.01 Morbid (severe) obesity due to excess calories (principal); R93.89 Abnormal findings on diagnostic imaging of other specified body structures; Z68.43 Body mass index [BMI] 50.0-59.9, adult; Z71.3 Dietary counseling and surveillance
CPT/HCPCS: 97803; 99211

== ENCOUNTER → 2020-11-06 | Outpatient (CLI) | payer BC ==
[2020-11-06 16:27] VITALS: BP 134/84; PULSE 96; RESP 18; TEMP 98; BMI 49.8
--- NOTE | 2020-11-06 16:43 | P.PN ---
Subjective Progress Note Date: 11/06/20 DATE OF SERVICE: 11/06/2020 CHIEF COMPLAINT: Status post sleeve gastrectomy HISTORY OF PRESENT ILLNESS: Farhad Lewis is a 55-year-old male who comes in with lifelong morbid obesity. He is status post sleeve gastrectomy, 09/30/20. He is 1 month out. He has lost 70 pounds. He has energy. He has returned back to work. He is on a BiPAP machine. He feels great otherwise. He reports he needs lower back surgery. His kidneys have improved. He saw his mattress renovator. At height of 5 feet 11.5 inches, his ideal body weight is 178 pounds. His highest weight was 432 pounds, BMI 60.1. He comes in 361 pounds from 411 pounds, 2 months ago. He has lost 50 pounds in 2 months. Lifetime weight loss of 75 pounds. Lifetime percent excess weight loss, 29%. His body mass index was 60.1, now 49.8. He is 183 pounds overweight. PHYSICAL EXAM: VITAL SIGNS: Height 5 foot 11.5 inches, weight 361 pounds. BMI 49.8 Vital Signs Temp 98 F 11/06/20 16:15 Pulse 96 11/06/20 16:15 Resp 18 11/06/20 16:15 BP 134/84 11/06/20 16:15 Pulse Ox Intake & Output 11/07/20 11/07/20 11/08/20 06:59 18:59 06:59 Weight 164.2 kg GENERAL: Well-developed in no acute distress. HEENT: No scleral icterus. Extraocular movements grossly intact. Hears conversational speech. No nasal drainage. NECK: Supple without lymphadenopathy. CHEST: Nonlabored respirations with equal bilateral excursions. CARDIOVASCULAR: Regular rate and regular rhythm. Distal 2+ pulses. ABDOMEN: Obese, soft, nontender, nondistended. MUSCULOSKELETAL: No clubbing, cyanosis. NEURO: No focal or lateralizing signs. Cranial nerves 2 through 12 grossly within normal limits. PSYCH: Appropriate affect. Alert and oriented to person, place and time. SKIN: Good skin turgor. Well perfused. ASSESSMENT: 1. Morbid obesity due to excess calories 2. Body mass index of 60.1, initial 3. Obstructive sleep apnea 4. Chronic soft pulmonary disease 5. Ischemic cardiomyopathy 6. Myocardial infarction 7. Osteoarthritis lower back 8. Hyperlipidemia 9. Coronary artery disease 10. Lymphocytosis 11. Generalized anxiety disorder 12. Depressive disorder 13. Diabetes 2, fve-crnkozd-edjnayyjf, new 14. Vitamin D deficiency 15. Secondary hyperparathyroidism 16. Copper excess 17. Zinc deficiency 18. Status post sleeve gastrectomy PLAN: 1. Recommend bariatric labs as he is 1 month out. 2. May resume aspirin and atorvastatin per mattress renovator. Objective - Vital Signs Vital signs: Vital Signs Temp 98 F 11/06/20 16:15 Pulse 96 11/06/20 16:15 Resp 18 11/06/20 16:15 BP 134/84 11/06/20 16:15 Pulse Ox Intake & Output 11/05/20 11/06/20 11/06/20 18:59 06:59 18:59 Weight 164.2 kg
== END | disposition home or self-care (01) ==
LOC: BARWHC3 16:04
PROVIDERS: ATTEND Surgery Plastic and Reconstructive Surgery
DX: E66.01 Morbid (severe) obesity due to excess calories (principal); G47.33 Obstructive sleep apnea (adult) (pediatric); J44.9 Chronic obstructive pulmonary disease, unspecified; I25.5 Ischemic cardiomyopathy; I21.9 Acute myocardial infarction, unspecified; M47.9 Spondylosis, unspecified; E78.5 Hyperlipidemia, unspecified; I25.10 Atherosclerotic heart disease of native coronary artery without angina pectoris; D72.820 Lymphocytosis (symptomatic); F41.9 Anxiety disorder, unspecified; F32.9 Major depressive disorder, single episode, unspecified; E11.9 Type 2 diabetes mellitus without complications; E55.9 Vitamin D deficiency, unspecified; N25.81 Secondary hyperparathyroidism of renal origin; E60 Dietary zinc deficiency; Z98.84 Bariatric surgery status; Z68.42 Body mass index [BMI] 45.0-49.9, adult; Z71.3 Dietary counseling and surveillance
CPT/HCPCS: 97803; 99211

== ENCOUNTER → 2020-11-18 | Outpatient (CLI) | payer BC ==
[2020-11-18 16:39] LABS: HCT 47.3 % (39.0-53.0); HGB 15.5 gm/dL (13.0-17.5); MCH 28.6 pg (25.0-35.0); MCHC 32.7 g/dL (31.0-37.0); MCV 87.5 fL (80.0-100.0); Mean Platelet Volume 8.1; Platelet Count 204 k/uL (150-450); RDW 15.7 % (11.5-15.5); WBC 8.1 k/uL (3.8-10.6)
[2020-11-19 00:50] LABS: Hemoglobin A1C 5.8 % (4.0-6.0)
[2020-11-19 01:53] LABS: % Iron Saturation 16.84 (15.00-50.00); African American GFR (CKD) 110.3 (60.0-200.0); Albumin 4.4 g/dL (3.80-4.90); Albumin/Globulin Ratio 2.1 (1.60-3.17); Anion Gap 11.3 mmol/L (4.00-12.00); BUN/Creat Ratio 16.67 Ratio (12.00-20.00); Calcium 9.2 mg/dL (8.7-10.3); Carbon Dioxide 23.7 mmol/L (21.6-31.8); Chol/HDL Ratio 4.97; Globulin 2.1 g/dL (1.6-3.3); LDL Cholesterol,Calculated 118.6 mg/dL (0.0-131.0); Magnesium 1.8 mg/dL (1.5-2.4); Non-African American GFR(CKD) 95.1 (60.0-200.0); Phosphorus 3.4 mg/dL (2.4-5.1); Potassium 3.6 mmol/L (3.5-5.5); Total Protein 6.5 g/dL (6.2-8.2); VLDL Calculation 28.4 mg/dL (5.00-40.00)
[2020-11-19 02:38] LABS: Ferritin 275.9 ng/mL (22.0-322.0)
[2020-11-19 03:50] LABS: INR 1.15 (0.90-1.11); Prothrombin Time 12.3 sec (9.9-11.9)
[2020-11-19 03:56] LABS: Folate, Serum 9.9 ng/mL
[2020-11-19 13:08] LABS: Zinc, Serum 52 ug/dL (60-130)
[2020-11-20 07:57] LABS: Vitamin A 34 ug/dL (38-106)
[2020-11-20 08:02] LABS: Vit B1(Thiamine) 59 ug/L (38-122)
== END | disposition home or self-care (01) ==
LOC: LABWHC1 16:16
PROVIDERS: ATTEND Surgery Plastic and Reconstructive Surgery
DX: E89.1 Postprocedural hypoinsulinemia (principal); D50.8 Other iron deficiency anemias; E44.0 Moderate protein-calorie malnutrition; E55.9 Vitamin D deficiency, unspecified; E66.01 Morbid (severe) obesity due to excess calories; K74.1 Hepatic sclerosis; N19 Unspecified kidney failure; K50.90 Crohn's disease, unspecified, without complications
CPT/HCPCS: 36415; 80053; 80061; 82306; 82525; 82607; 82728; 82746; 83036; 83540; 83550; 83735; 83970; 84100; 84134; 84255; 84425; 84443; 84590; 84630; 85027; 85610; 85730

== ENCOUNTER → 2021-01-01 | Outpatient (CLI) | payer BC ==
[2021-01-01 16:39] VITALS: BP 161/99; PULSE 91; RESP 20; TEMP 98.1; BMI 46.0
--- NOTE | 2021-01-01 16:58 | P.PN ---
Subjective Progress Note Date: 01/01/21 He has lost over 100 pounds. His fingers, feet is smaller. He has seen his lobbyist and is doing well. Must check kidneys in [address] Chu for lungs. He will be off his CPAP soon. He has lost 30 pounds. He is taking his MVI. He is eating 70 grams of protein daily. Recommend blood work. Objective - Vital Signs Vital signs: Vital Signs Temp 98.1 F 01/01/21 16:31 Pulse 91 01/01/21 16:31 Resp 20 01/01/21 16:31 BP 161/99 01/01/21 16:31 Pulse Ox 98 01/01/21 16:31 Intake & Output 12/31/20 01/01/21 01/01/21 18:59 06:59 18:59 Weight 151.953 kg
== END | disposition home or self-care (01) ==
LOC: BARWHC3 16:06
PROVIDERS: ATTEND Surgery Plastic and Reconstructive Surgery
DX: E66.01 Morbid (severe) obesity due to excess calories (principal); Z71.3 Dietary counseling and surveillance; F32.9 Major depressive disorder, single episode, unspecified; Z87.891 Personal history of nicotine dependence; Z98.84 Bariatric surgery status; Z46.51 Encounter for fitting and adjustment of gastric lap band
CPT/HCPCS: 97803; 99211

== ENCOUNTER → 2021-02-25 | Outpatient (CLI) | payer BC ==
[2021-02-26 00:07] LABS: HCT 45.8 % (39.6-50.0); HGB 14.7 g/dL (13.0-17.0); MCH 28.6 pg (27.0-32.0); MCHC 32.1 g/dL (32.0-37.0); MCV 89.1 fL (80.0-97.0); Mean Platelet Volume 10.9 fL (9.5-12.2); Platelet Count 210 X 10*3/uL (140-440); RBC 5.14 X 10*6/uL (4.40-5.60); RDW 13.8 % (11.5-14.5); WBC 7.24 X 10*3/uL (4.50-10.00)
[2021-02-26 00:09] LABS: INR 1.12 (0.90-1.11); Partial Thromboplastin Time 31.3 sec (23.5-31.0); Prothrombin Time 12.1 sec (9.9-11.9)
[2021-02-26 03:24] LABS: Hemoglobin A1C 5.6 % (4.0-6.0)
[2021-02-26 13:18] LABS: Zinc, Serum 74 ug/dL (60-130)
[2021-02-26 13:20] LABS: Vit B1(Thiamine) 67 ug/L (38-122)
[2021-02-26 16:13] LABS: Ferritin 174.3 ng/mL (22.0-322.0)
[2021-02-26 16:35] LABS: % Iron Saturation 16.9 (15.00-50.00); African American GFR (CKD) 109.5 (60.0-200.0); Albumin 4.2 g/dL (3.80-4.90); Albumin/Globulin Ratio 1.68 (1.60-3.17); Anion Gap 14.6 mmol/L (4.00-12.00); BUN/Creat Ratio 17.78 Ratio (12.00-20.00); Calcium 9.3 mg/dL (8.7-10.3); Carbon Dioxide 21.4 mmol/L (21.6-31.8); Chol/HDL Ratio 3.38; Globulin 2.5 g/dL (1.6-3.3); LDL Cholesterol,Calculated 80.2 mg/dL (0.0-131.0); Magnesium 1.9 mg/dL (1.5-2.4); Non-African American GFR(CKD) 94.5 (60.0-200.0); Phosphorus 3.9 mg/dL (2.4-5.1); Potassium 4.2 mmol/L (3.5-5.5); Total Bilirubin 0.7 mg/dL (0.2-1.2); Total Protein 6.7 g/dL (6.2-8.2); VLDL Calculation 26.8 mg/dL (5.00-40.00)
[2021-02-26 17:11] LABS: Folate, Serum 19.2 ng/mL
[2021-02-27 06:14] LABS: Vitamin A 43 ug/dL (38-106)
[2021-02-28 02:19] LABS: Selenium 129 mcg/L (63-160)
== END | disposition home or self-care (01) ==
LOC: LABWHC1 16:21
PROVIDERS: ATTEND Surgery Plastic and Reconstructive Surgery
DX: E78.2 Mixed hyperlipidemia (principal); E66.01 Morbid (severe) obesity due to excess calories; E89.1 Postprocedural hypoinsulinemia; D50.8 Other iron deficiency anemias; K90.89 Other intestinal malabsorption; E55.9 Vitamin D deficiency, unspecified; K74.1 Hepatic sclerosis; N19 Unspecified kidney failure; K50.90 Crohn's disease, unspecified, without complications; Z98.84 Bariatric surgery status
CPT/HCPCS: 36415; 80053; 80061; 82306; 82525; 82550; 82607; 82728; 82746; 83036; 83540; 83550; 83735; 83970; 84100; 84134; 84255; 84425; 84443; 84590; 84630; 85027; 85610; 85730

== ENCOUNTER → 2021-04-02 | Outpatient (CLI) | payer BC ==
[2021-04-02 17:38] VITALS: BP 131/84; PULSE 75; RESP 16; TEMP 97.7; BMI 40.1
--- NOTE | 2021-04-02 17:59 | P.PN ---
Subjective Progress Note Date: 04/02/21 He has lost 130 pounds. He no longer needs continuous heart check. His back pain is better since weight loss. CPAP machine is off. He was 437 pounds. He is under 300 pounds. He wants to lose another 80 pounds. He has mild GERD. Recommend stop Prilosec. He is 6 months out. Recommend labs. Objective - Vital Signs Vital signs: Vital Signs Temp 97.7 F 04/02/21 17:36 Pulse 75 04/02/21 17:36 Resp 16 04/02/21 17:36 BP 131/84 04/02/21 17:36 Pulse Ox Intake & Output 04/01/21 04/02/21 04/02/21 18:59 06:59 18:59 Weight 132.449 kg
== END | disposition home or self-care (01) ==
LOC: BARWHC3 16:23
PROVIDERS: ATTEND Surgery Plastic and Reconstructive Surgery
DX: E66.01 Morbid (severe) obesity due to excess calories (principal); Z71.3 Dietary counseling and surveillance; Z68.41 Body mass index [BMI] 40.0-44.9, adult
CPT/HCPCS: 97803; 99211

== ENCOUNTER → 2021-08-29 | Outpatient (CLI) | payer BC ==
[2021-08-29 17:24] LABS: INR 1.1 (<1.2); Partial Thromboplastin Time 26.1 sec (22.0-30.0); Prothrombin Time 11.4 sec (9.0-12.0)
[2021-08-30 00:14] LABS: HCT 44.6 % (39.6-50.0); HGB 14.5 g/dL (13.0-17.0); MCH 28.8 pg (27.0-32.0); MCHC 32.5 g/dL (32.0-37.0); MCV 88.7 fL (80.0-97.0); Mean Platelet Volume 10.8 fL (9.5-12.2); Platelet Count 188 X 10*3/uL (140-440); RBC 5.03 X 10*6/uL (4.40-5.60); RDW 13.2 % (11.5-14.5); WBC 6.51 X 10*3/uL (4.50-10.00)
[2021-08-30 04:27] LABS: Folate, Serum 15.8 ng/mL (4.40-31.00)
[2021-08-30 04:29] LABS: % Iron Saturation 12.37 (15.00-50.00); Albumin 4.5 g/dL (3.8-4.9); Albumin/Globulin Ratio 1.96 (1.60-3.17); Anion Gap 13.1 mmol/L (4.00-12.00); BUN/Creat Ratio 30.17 Ratio (12.00-20.00); Blood Urea Nitrogen 21.3 mg/dL (9.0-27.0); Calcium 9.3 mg/dL (8.7-10.3); Carbon Dioxide 24.3 mmol/L (21.6-31.8); Chol/HDL Ratio 1.97 Ratio; Globulin 2.3 g/dL (1.6-3.3); HDL Cholesterol 65.6 mg/dL (40.00-60.00); LDL Cholesterol,Calculated 51.7 mg/dL (0.0-131.0); Magnesium 2.1 mg/dL (1.5-2.4); Non-African American GFR(CKD) 104.4 (60.0-200.0); Phosphorus 3.6 mg/dL (2.4-5.1); Prealbumin 24.8 mg/dL (18.0-42.0); Total Bilirubin 0.5 mg/dL (0.30-1.20); Total Protein 6.7 g/dL (6.2-8.2); Triglycerides 58.7 mg/dL (0.00-149.00); VLDL Calculation 11.74 mg/dL (5.00-40.00)
== END | disposition home or self-care (01) ==
LOC: LABWHC1 16:32
PROVIDERS: ATTEND Surgery Plastic and Reconstructive Surgery
DX: E66.01 Morbid (severe) obesity due to excess calories (principal); E89.1 Postprocedural hypoinsulinemia; E44.0 Moderate protein-calorie malnutrition; E55.9 Vitamin D deficiency, unspecified; K74.1 Hepatic sclerosis; N19 Unspecified kidney failure; K50.90 Crohn's disease, unspecified, without complications; D50.8 Other iron deficiency anemias; Z98.84 Bariatric surgery status
CPT/HCPCS: 36415; 80053; 80061; 82306; 82525; 82607; 82728; 82746; 83036; 83540; 83550; 83735; 83970; 84100; 84134; 84255; 84425; 84443; 84590; 84630; 85027; 85610; 85730

== ENCOUNTER → 2022-10-21 | Outpatient (CLI) | payer BC ==
[2022-10-21 17:08] VITALS: BP 166/107; PULSE 77; RESP 16; TEMP 98; BMI 40.9
[2022-10-21 17:17] LABS: Partial Thromboplastin Time 26.3 sec (22.0-30.0); Prothrombin Time 10.9 sec (9.0-12.0)
--- NOTE | 2022-10-21 17:40 | P.BASOAP ---
Subjective Progress Note Date: 10/21/22 Clinically doing well. Reports 20 pound weight gain due to multiple social stressors. Otherwise mild hypertension. Patient reports at home blood pressure well controlled. Clinically stable. Recommend superintendent seed mill follow-up Objective - Vital Signs Vital signs: Vital Signs Temp 98 F 10/21/22 17:06 Pulse 77 10/21/22 17:06 Resp 16 10/21/22 17:06 BP 166/107 10/21/22 17:06 Pulse Ox FiO2 Intake & Output 10/20/22 10/21/22 10/21/22 18:59 06:59 18:59 Weight 135.171 kg Assessment/Plan Plan: Date: 10/21/22 Initial Weight: 196.405 kg Initial BMI: 59.5 Current Weight: 135.171 kg Current BMI: 40.9 Type of Surgery: Vertical Sleeve Gastrectomy Total Volume in Band: Previous Volume: Volume Removed: Volume Added: Band Size:
[2022-10-21 22:55] LABS: HCT 51.4 % (39.6-50.0); HGB 16.3 g/dL (13.0-17.0); MCH 29.6 pg (27.0-32.0); MCHC 31.7 g/dL (32.0-37.0); MCV 93.3 fL (80.0-97.0); Mean Platelet Volume 10.5 fL (9.5-12.2); NRBC Per 100 WBC 0 /100 WBCS (0.0-0.0); Platelet Count 172 X 10*3/uL (140-440); RBC 5.51 X 10*6/uL (4.40-5.60); RDW 13.2 % (11.5-14.5); WBC 7.65 X 10*3/uL (4.50-10.00)
[2022-10-22 00:22] LABS: Chol/HDL Ratio 2.08 Ratio; LDL Cholesterol,Calculated 66.4 mg/dL (0.0-131.0); Prealbumin 33.3 mg/dL (18.0-42.0)
[2022-10-22 01:17] LABS: % Iron Saturation 14.14 (15.00-50.00); ALT 27 U/L (10-49); AST 22 U/L (14-35); African American GFR (CKD) 109.2 (60.0-200.0); Albumin 4.7 g/dL (3.8-4.9); Albumin/Globulin Ratio 1.86 (1.60-3.17); Alkaline Phosphatase 105 U/L (41-126); BUN/Creat Ratio 26.82 Ratio (12.00-20.00); Blood Urea Nitrogen 23.9 mg/dL (9.0-27.0); Calcium 9.4 mg/dL (8.7-10.3); Carbon Dioxide 29.2 mmol/L (20.0-27.5); Chloride 102 mmol/L (96-109); Globulin 2.5 g/dL (1.6-3.3); Glucose 89 mg/dL (70-110); Iron 67 ug/dL (65-175); Magnesium 2.4 mg/dL (1.5-2.4); Non-African American GFR(CKD) 94.2 (60.0-200.0); Phosphorus 3.8 mg/dL (2.4-5.1); Potassium 4.8 mmol/L (3.5-5.5); Sodium 142 mmol/L (135-145); Total Iron Binding Capacity 472 ug/dL (228-460); Total Protein 7.2 g/dL (6.2-8.2)
== END ==
LOC: BARWHC3 16:10
PROVIDERS: ATTEND Surgery Plastic and Reconstructive Surgery
DX: E66.01 Morbid (severe) obesity due to excess calories (principal); Z68.41 Body mass index [BMI] 40.0-44.9, adult; D50.9 Iron deficiency anemia, unspecified; E44.0 Moderate protein-calorie malnutrition; E45 Retarded development following protein-calorie malnutrition; E55.9 Vitamin D deficiency, unspecified; K74.1 Hepatic sclerosis; N19 Unspecified kidney failure; T56.894A Toxic effect of other metals, undetermined, initial encounter; K50.90 Crohn's disease, unspecified, without complications
CPT/HCPCS: 80053; 80061; 82306; 82525; 82607; 82728; 82746; 83036; 83540; 83550; 83735; 83970; 84100; 84134; 84255; 84425; 84443; 84590; 84630; 85027; 85610; 85730; 99211